=== PATIENT | female | born 1990 | race Caucasian/White ===

== ENCOUNTER 2020-01-27 13:45 | Emergency (ER) | payer MEDICAID, SELFPAY ==
--- NOTE | 2020-01-27 13:48 | XR_ITS ---
WS: [id number] XR chest 1V portable [id number] REASON FOR EXAM: cp FINDINGS: The heart and mediastinal interfaces are normal. The lung strange are well aerated. No pneumonia, pleural effusion, pulmonary edema, are pneumothorax. The hilum and apices are normal. No osseous abnormalities. XR/XR chest 1V portable [id number] IMPRESSION: Negative chest for active pathology.
--- NOTE | 2020-01-27 13:48 | ECG_ITS ---
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 Measurements Intervals [place] Rate: 71 P: 17 [place]: 171 QRS: 56 QRSD: 83 T: 52 QT: 392 QTc: 427 Interpretive Statements Normal sinus rhythm at rate of [address]-T's. Normal [place] interval and QRS duration. No previous studies available for comparison Electronically Signed On 01-27-2020 19:22:06 CDT by Wilian Andrade M.D. [id number]
[2020-01-27 14:06] VITALS: BP 134/77; PULSE 70; RESP 16; TEMP 36.8; O2SAT 96; BMI 30.4
[2020-01-27 14:24] VITALS: BP 134/77; PULSE 73; RESP 19; O2SAT 97
[2020-01-27 14:28] LABS: Basophils # 0.1 10^3/uL (0.0-0.1); Basophils % 0.6 %; Eosinophils # 0.4 10^3/uL (0.0-0.8); Eosinophils % 3.7 %; Hematocrit 43.4 % (37.0-47.0); Hemoglobin 14.5 g/dL (11.5-15.3); Lymphocytes # 2.9 10^3/uL (0.8-4.8); Lymphocytes % 26.7 %; Mean Corpuscular HGB Conc 33.4 g/dL (30.0-36.0); Mean Corpuscular Hemoglobin 31.3 pg (28.0-34.0); Mean Corpuscular Volume 93.7 fL (81-99); Mean Platelet Volume 10.4 fL (7.4-10.4); Monocytes # 0.5 10^3/uL (0.2-0.9); Monocytes % 4.5 %; Neutrophils % 64.2 %; Nucleated Red Blood Cells % 0 %; Platelet Count 283 10^3/cmm (130-400); Red Blood Count 4.63 10^6/uL (4.1-5.3); Red Cell Distribution Width 14.2 % (12.1-15.1); White Blood Count 10.9 10^3/uL (4.0-10.0)
--- NOTE | 2020-01-27 14:37 | ED_ITS ---
HPI - SOB/Dyspnea General: Chief Complaint: Shortness of Breath/Dyspnea Stated Complaint: cp, sob Time Seen by Provider: 01/27/20 14:03 History of Present Illness: HPI Narrative: 29-year-old pleasant female who comes in with complaint of shortness of breath I talked her she is it pain in the left side of her chest, lateral to the breast at the tail the breast and above the breast worse when she takes a deep breath is better when she takes shallow breaths began this morning she was just taking care of her kids doing generalized housework nothing exertional she suddenly began to notice it. She took some [id number] medications with no relief she cannot recall any recent trauma she denies any recent upper respiratory symptoms cough shortness of breath productive cough etc. MD elicited complaint: pain with inspiration Onset (ago): hour(s) Timing: constant Severity: severe Exacerbating factors: inspiration Relieving factors: upright position and other (Shallow breathing) Associated symptoms: Deny abdominal pain, chest pain, fever(s), nausea, orthopnea or vomiting Treatment prior to arrival: none Review of Systems Const: Denies: fever(s), chills, body aches, change in appetite, fatigue or malaise ENMT: Denies: throat pain, ear or mastoid pain, nasal discharge or nasal congestion Card: Denies: chest pain, edema, dyspnea on exertion or orthopnea Resp: Denies: dyspnea, productive cough or non-productive cough GI: Denies: abdominal pain, nausea, vomiting, hematemesis, coffee ground emesis, diarrhea, constipation, bloating, hematochezia or melena : Denies: flank pain, difficulty voiding, dysuria, urinary frequency or urinary urgency Skin/Breast: Denies: rash or pruritus [facility] PFSH: Surgical History (Updated 01/27/20 @ 14:40 by Slava Williamson DO) H/O skin graft Right hand secondary to oil burn while cooking Social History Smoking and tobacco status: current every day smoker Physical Exam Const: COMMON NORMALS: no acute distress GENERAL APPEARANCE: cooperative and comfortable ORIENTATION/CONSCIOUSNESS: Yes awake, Yes oriented to person, Yes oriented to place and Yes oriented to time HENMT: COMMON NORMALS: normocephalic, atraumatic, hearing grossly normal bilaterally, external ears normal, EAC's normal, TM's normal bilaterally, Normal nasal mucous membranes and turbinates present, moist oral mucous membranes and oropharynx normal HEAD & SCALP: normocephalic and atraumatic NOSE: Normal nasal mucous membranes and turbinates present EXTERNAL EAR: Yes external ears normal EXTERNAL AUDITORY CANAL: EAC's normal TYMPANIC MEMBRANE: TM's normal bilaterally Eye: COMMON NORMALS: Equal, round and reactive pupils present, EOMs intact bilaterally, conjunctivae normal and no scleral icterus CONJUNCTIVA: Yes conjunctivae normal PUPIL: Yes Equal, round and reactive pupils present Neck/C-Spine: COMMON NORMALS: full ROM, no lymphadenopathy, supple and no JVD Lymph: LYMPHATIC: no lymphadenopathy noted and no lymphedema noted Resp: COMMON NORMALS: normal respiratory effort, No retractions, No use of accessory muscles and clear to auscultation bilaterally AUSCULTATION: clear to auscultation bilaterally Cardio: COMMON NORMALS: no JVD, regular rate, regular rhythm and No murmurs present (Cardio) RATE: regular rate RHYTHM: regular rhythm GI: COMMON NORMALS: Soft to palpation and No hepatosplenomegaly present AUSCULTATION: Yes normoactive bowel sounds PALPATION: Yes Soft to palpation, No Tenderness to palpation present (GI), No Guarding due to palpation present (GI) and Yes No hepatosplenomegaly present Extremity: COMMON NORMALS: normal to inspection, capillary refill normal, no clubbing, cyanosis or edema, no calf tenderness and no pedal edema Neuro: SENSORIUM/ORIENTATION: Yes oriented to person, Yes oriented to place and Yes oriented to time Skin: COMMON NORMALS: no rashes or lesions noted GENERAL SKIN EXAM: no rashes or lesions noted Course Vital Signs: Vital signs: Vital Signs Temperature 98.3 F 01/27/20 14:06 Pulse Rate 65 01/27/20 15:56 Respiratory Rate 16 01/27/20 15:56 Blood Pressure 119/79 01/27/20 15:56 Pulse Oximetry 97 01/27/20 15:56 MDM - SOB/Dyspnea MDM Narrative: Medical decision making narrative: Viewed findings with the patient. There is symptoms reproducible with deep inspiration treat with pain control and prednisone follow-up as needed return if worsens Lab Data: Labs: Lab Results 01/27/20 01/27/20 01/27/20 Range/Units 14:16 14:16 14:16 WBC 10.9 H (4.0-10.0) 10^3/ uL RBC 4.63 (4.1-5.3) 10^6/u L Hgb 14.5 (11.5-15.3) g/dL Hct 43.4 (37.0-47.0) % MCV 93.7 (81-99) fL MCH 31.3 (28.0-34.0) pg MCHC 33.4 (30.0-36.0) g/dL RDW 14.2 (12.1-15.1) % Plt Count 283 (130-400) 10^3/c mm MPV 10.4 (7.4-10.4) fL Neut % (Auto) 64.2 % Lymph % (Auto) 26.7 % [place] % (Auto) 4.5 % Eos % (Auto) 3.7 % Baso % (Auto) 0.6 % Neut # (Auto) 7.0 (1.8-7.7) 10^3/u L Lymph # (Auto) 2.9 (0.8-4.8) 10^3/u L [place] # (Auto) 0.5 (0.2-0.9) 10^3/u L Eos # (Auto) 0.4 (0.0-0.8) 10^3/u L Baso # (Auto) 0.1 (0.0-0.1) 10^3/u L Nucleated RBC % (a uto) 0 % Nucleated RBCs # 0.0 /100WBC Sodium 137 (136-145) mmol/L Potassium 4.0 (3.5-5.1) mmol/L Chloride 103 (98-107) mmol/L Carbon Dioxide 22 (22-29) mmol/L Anion Gap 16.0 (5-19) BUN 11 (6-20) mg/dL Creatinine 0.7 (0.5-0.9) mg/dL GFR Calculation 97.6 (90-130) mL/min Glucose 145 H (65-115) mg/dL Calculated Osmolal ity 283 L (285-295) mOsm/k g Calcium 9.8 (8.5-10.5) mg/dL Total Bilirubin 0.2 (0.15-1.2) mg/dL AST 15 (0-32) U/L ALT 15 (0-33) U/L Alkaline Phosphata se 67 (35-105) IU/L Troponin T Baselin e 6 (0-10) ng/L NT-Pro-B Natriuret Pep 56 (0-125) pg/mL Total Protein 7.2 (6.6-8.7) g/dL Albumin 4.7 (3.5-5.2) g/dL Globulin 2.5 (1.3-4.6) g/dL Discharge Plan Discharge Patient Disposition: Home, Self-Care Clinical Impression: Chest pain, pleuritic Condition: Stable Prescriptions: New hydrocodone-acetaminophen 5-325 mg tablet 1 tab PO Q6H PRN (Reason: pain) Qty: 10 RF: 0 Medrol ([place]) 4 mg tablets,dose pack See Rx Instructions .ROUTE .COMPLEX Qty: 21 RF: 0 No Action multivitamin Tablet 1 tab PO DAILY RF: 0 ibuprofen 600 mg Tablet 600 mg PO PRN PRN (Reason: Pain) RF: 0 Discharge Orders: Discharge Order (Routine); Ordered 01/27/20 Ordered By: Slava Williamson Referrals: Bertrand Sibley MD [Primary Care Provider] - Discharge Diet: Usual diet Discharge Activity: Increase activity as tolerated Activity Restrictions/Additional Instructions: Follow-up with your primary care doctor as needed Discharge Date/Time: 01/27/20 15:56 Coding Level of Care Code ED Computer Education Professor for Pb Fwd Exam Comprehensive
[2020-01-27 14:53] LABS: Troponin(5th) Baseline 6 ng/L (0-10)
[2020-01-27 15:03] LABS: Alanine Aminotransferase 15 U/L (0-33); Albumin Level 4.7 g/dL (3.5-5.2); Alkaline Phosphatase 67 IU/L (35-105); Aspartate Amino Transferase 15 U/L (0-32); Blood Urea Nitrogen 11 mg/dL (6-20); Calcium 9.8 mg/dL (8.5-10.5); Carbon Dioxide 22 mmol/L (22-29); Chloride 103 mmol/L (98-107); Creatinine Clr Calc Pharmacy 123.9061; Globulin 2.5 g/dL (1.3-4.6); Glomerular Filtration Rate 97.6 mL/min (90-130); Glucose 145 mg/dL (65-115); NT Pro B Type Natriuretic Pept 56 pg/mL (0-125); Osmolality Calculated 283 mOsm/kg (285-295); Sodium 137 mmol/L (136-145); Total Bilirubin 0.2 mg/dL (0.15-1.2); Total Protein 7.2 g/dL (6.6-8.7)
[2020-01-27 15:06] VITALS: BP 119/79; PULSE 58; RESP 20; O2SAT 97
[2020-01-27] MEDS: HYDROcodone-acetaminophen 5-325 mg Tablet 2 TAB PO (15:06)
--- NOTE | 2020-01-27 15:48 | ECG_ITS ---
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 Measurements Intervals [place] Rate: 55 P: 9 ID: [id number] QRS: 44 QRSD: 86 T: 47 QT: 436 QTc: 418 Interpretive Statements Sinus bradycardia with a rate of [address] changes suggestive of diffuse early repolarization No significant ST-T changes. Normal ID and QRS duration. Electronically Signed On 01-27-2020 19:36:54 CDT by Wilian Andrade M.D. [id number]
--- NOTE | 2020-01-27 15:49 | PC.NURSE ---
EKG done at 1544 and shown to ER doctor
[2020-01-27 15:56] VITALS: BP 119/79; PULSE 65; RESP 16; O2SAT 97
== END 2020-01-27 15:56 | disposition home or self-care (01) ==
PROVIDERS: Emergency Medicine; Emergency Provider Family Medicine; PCP Family Medicine
DX: R07.81 Pleurodynia (principal); F17.210 Nicotine dependence, cigarettes, uncomplicated
CPT/HCPCS: 12345; 36415; 71045; 80053; 83880; 84484; 85025; 93005; 99282; 99284

== ENCOUNTER 2020-02-17 07:27 | Emergency (ER) | payer MEDICAID, SELFPAY ==
[2020-02-17 07:44] VITALS: BP 148/98; PULSE 60; RESP 16; TEMP 36.6; O2SAT 99; BMI 29.9
--- NOTE | 2020-02-17 08:02 | XRR_ITS ---
PROCEDURE INFORMATION: Exam: XR Chest, 1 View Exam date and time: 02/17/2020 8:19 AM Age: 29 years old Clinical indication: Cough and dyspnea; Additional info: Dyspnea/cough TECHNIQUE: Imaging protocol: XR of the chest Views: 1 view. COMPARISON: CR XR chest 1V portable [id number] 01/27/2020 2:01 PM FINDINGS: Lungs: Unremarkable. No consolidation. Pleural space: Unremarkable. No pleural effusion. No pneumothorax. Heart/Mediastinum: Unremarkable. No cardiomegaly. Bones/joints: Unremarkable. XR/XR chest 1V portable [id number] IMPRESSION: No acute findings.
--- NOTE | 2020-02-17 08:14 | W.ED.GENADLT ---
HPI - General Adult General: Chief complaint: General Medical Stated complaint: SOB/LUNG PAIN Time Seen by Provider: 02/17/20 07:46 History of Present Illness: HPI narrative: 35-year-old female only seen her 2 to 3 weeks ago at that time she diverted like chest pain and left upper side who prescribed her some steroid she had really good results with that resolved now it is recurring. This morning is worse with a deep breath in the same area as before she is not had a productive cough she not had a fever she had any leg swelling or pain she is not noticed any shortness of breath just pain only when she takes a deep breath. She denies any rapid heart rate or palpitations either. She describes the pain is identical to prior with 1 exception that is not reproduced with palpation across the upper chest or the tail the breast anymore just when she takes a deep breath. Onset (ago): hour(s) Location: chest (Left upper) Radiation: non-radiation Severity: moderate Quality: sharp Pain Consistency: intermittent Relieving factors: none Exacerbating factors: other (Deep breath) Associated symptoms: Reports chest pain; Deny cough, diaphoresis, dyspnea, fevers/chills, malaise, nausea, rash, palpitations, vomiting or weakness Treatments prior to arrival: NSAID (Mild relief) Review of Systems Const: Denies: malaise or diaphoresis ENMT: Denies: throat pain, ear or mastoid pain, nasal discharge or nasal congestion Card: Reports: chest pain; Denies: palpitations Resp: Denies: dyspnea GI: Denies: nausea or vomiting : Denies: flank pain, difficulty voiding, dysuria, urinary frequency or urinary urgency Skin/Breast: Denies: rash or pruritus PFSH ED PFSH: Medical History Current smoker Surgical History H/O skin graft Right hand secondary to oil burn while cooking Family History Other Cancer Dementia Diabetes Hypertension Stroke Denies family history of Chronic kidney disease (CKD) Bleeding disorder Social History Smoking and tobacco status: current every day smoker Second hand smoke exposure: Yes Smoking risk assessment/counseling performed?: Yes Alcohol intake: current Alcohol intake frequency: 0-2 Drinks per Day Desire information about alcohol rehabilitation?: No Counseling given: No Substance/Drug Use: never Desire information about substance/drug rehabilitation?: No Counseling given: No Adopted: No Caregiver/support person: No Lives independently: Yes Household members: significant other and children Housing: House Marital status: Single Number of children: 3 service: No Current occupational status: unemployed and student Pets and animals: Yes Pets & animals: dog(s) History of recent travel: No Current gender identity: Female Female Reproductive History: Date of last menstrual period: 02/09/20 Physical Exam Const: COMMON NORMALS: no acute distress GENERAL APPEARANCE: cooperative and comfortable ORIENTATION/CONSCIOUSNESS: Yes awake, Yes oriented to person, Yes oriented to place and Yes oriented to time HENMT: COMMON NORMALS: normocephalic, atraumatic, hearing grossly normal bilaterally, external ears normal, EAC's normal, TM's normal bilaterally, Normal nasal mucous membranes and turbinates present, moist oral mucous membranes and oropharynx normal HEAD & SCALP: normocephalic and atraumatic NOSE: Normal nasal mucous membranes and turbinates present EXTERNAL EAR: Yes external ears normal EXTERNAL AUDITORY CANAL: EAC's normal TYMPANIC MEMBRANE: TM's normal bilaterally Eye: COMMON NORMALS: Equal, round and reactive pupils present, EOMs intact bilaterally, conjunctivae normal and no scleral icterus CONJUNCTIVA: Yes conjunctivae normal PUPIL: Yes Equal, round and reactive pupils present Neck/C-Spine: COMMON NORMALS: full ROM, no lymphadenopathy, supple and no JVD Lymph: LYMPHATIC: no lymphadenopathy noted and no lymphedema noted Resp: COMMON NORMALS: normal respiratory effort, No retractions, No use of accessory muscles and clear to auscultation bilaterally AUSCULTATION: clear to auscultation bilaterally Cardio: COMMON NORMALS: no JVD, regular rate, regular rhythm and No murmurs present (Cardio) RATE: regular rate RHYTHM: regular rhythm GI: COMMON NORMALS: Soft to palpation and No hepatosplenomegaly present AUSCULTATION: Yes normoactive bowel sounds PALPATION: Yes Soft to palpation, No Tenderness to palpation present (GI), No Guarding due to palpation present (GI) and Yes No hepatosplenomegaly present Extremity: COMMON NORMALS: normal to inspection, capillary refill normal, no clubbing, cyanosis or edema, no calf tenderness and no pedal edema Neuro: SENSORIUM/ORIENTATION: Yes oriented to person, Yes oriented to place and Yes oriented to time Skin: COMMON NORMALS: no rashes or lesions noted GENERAL SKIN EXAM: no rashes or lesions noted Course Vital Signs: Vital signs: Vital Signs Temperature 97.8 F 02/17/20 07:44 Pulse Rate 67 02/17/20 09:41 Respiratory Rate 18 02/17/20 09:41 Blood Pressure 136/96 02/17/20 09:41 Pulse Oximetry 97 02/17/20 09:41 MDM - General Adult MDM Narrative: Medical decision making narrative: Reviewed findings with the patient. Recommend supportive cares pain medications as needed continue to follow-up with primary care or return to the ER if is worsening problems. Lab Data: Labs: Lab Results 02/17/20 02/17/20 Range/Units 08:25 08:25 WBC 8.9 (4.0-10.0) 10^3/ uL RBC 4.63 (4.1-5.3) 10^6/u L Hgb 14.6 (11.5-15.3) g/dL Hct 45.5 (37.0-47.0) % MCV 98.3 (81-99) fL MCH 31.5 (28.0-34.0) pg MCHC 32.1 (30.0-36.0) g/dL RDW 13.8 (12.1-15.1) % Plt Count 278 (130-400) 10^3/c mm MPV 10.3 (7.4-10.4) fL Neut % (Auto) 67.0 % Lymph % (Auto) 24.1 % [place] % (Auto) 5.3 % Eos % (Auto) 2.9 % Baso % (Auto) 0.5 % Neut # (Auto) 6.0 (1.8-7.7) 10^3/u L Lymph # (Auto) 2.1 (0.8-4.8) 10^3/u L [place] # (Auto) 0.5 (0.2-0.9) 10^3/u L Eos # (Auto) 0.3 (0.0-0.8) 10^3/u L Baso # (Auto) 0.0 (0.0-0.1) 10^3/u L Nucleated RBC % (a uto) 0 % Nucleated RBCs # 0.0 /100WBC Sodium 139 (136-145) mmol/L Potassium 4.1 (3.5-5.1) mmol/L Chloride 106 (98-107) mmol/L Carbon Dioxide 22 (22-29) mmol/L Anion Gap 15.1 (5-19) BUN 10 (6-20) mg/dL Creatinine 0.6 (0.5-0.9) mg/dL GFR Calculation 116.6 (90-130) mL/min Glucose 94 (65-115) mg/dL Calculated Osmolal ity 284 L (285-295) mOsm/k g Calcium 9.2 (8.5-10.5) mg/dL Total Bilirubin 0.5 (0.15-1.2) mg/dL AST 13 (0-32) U/L ALT 13 (0-33) U/L Alkaline Phosphata se 69 (35-105) IU/L C-Reactive Protein 7.2 H (0.0-4.9) mg/L Total Protein 7.3 (6.6-8.7) g/dL Albumin 4.4 (3.5-5.2) g/dL Globulin 2.9 (1.3-4.6) g/dL Discharge Plan Discharge Patient Disposition: Home, Self-Care Clinical Impression: Atypical chest pain, Pleuritis Condition: Stable Prescriptions: New hydrocodone-acetaminophen 5-325 mg tablet 1 tab PO Q6H PRN (Reason: pain) Qty: 10 RF: 0 Held ibuprofen 200 mg Tablet 800 mg PO PRN RF: 0 Hold Instructions: Resume on 02/27/20. Hold while taking diclofenac No Action multivitamin Tablet 1 tab PO DAILY RF: 0 Discharge Orders: Discharge Order (Routine); Ordered 02/17/20 Ordered By: Slava Williamson Referrals: Bertrand Sibley MD [Primary Care Provider] - Activity Restrictions/Additional Instructions: Follow-up with your primary care doctors pain recurs. Interventions: ED Discharge Assessment Last Done: 02/17/20 09:41 ED Charges Last Done: 02/17/20 09:41 Discharge Date/Time: 02/17/20 09:43 Coding Level of Care Code ED Strap Folding Machine Operator for Chg Fwd Exam Comprehensive
[2020-02-17] MEDS: ketorolac 30 mg/mL INJ IVP (08:31)
[2020-02-17 08:32] LABS: Basophils % 0.5 %; Eosinophils # 0.3 10^3/uL (0.0-0.8); Eosinophils % 2.9 %; Hematocrit 45.5 % (37.0-47.0); Hemoglobin 14.6 g/dL (11.5-15.3); Lymphocytes # 2.1 10^3/uL (0.8-4.8); Lymphocytes % 24.1 %; Mean Corpuscular HGB Conc 32.1 g/dL (30.0-36.0); Mean Corpuscular Hemoglobin 31.5 pg (28.0-34.0); Mean Corpuscular Volume 98.3 fL (81-99); Mean Platelet Volume 10.3 fL (7.4-10.4); Monocytes # 0.5 10^3/uL (0.2-0.9); Monocytes % 5.3 %; Nucleated Red Blood Cells % 0 %; Platelet Count 278 10^3/cmm (130-400); Red Blood Count 4.63 10^6/uL (4.1-5.3); Red Cell Distribution Width 13.8 % (12.1-15.1); White Blood Count 8.9 10^3/uL (4.0-10.0)
[2020-02-17 08:52] LABS: Alanine Aminotransferase 13 U/L (0-33); Albumin Level 4.4 g/dL (3.5-5.2); Alkaline Phosphatase 69 IU/L (35-105); Anion Gap 15.1 (5-19); Aspartate Amino Transferase 13 U/L (0-32); Blood Urea Nitrogen 10 mg/dL (6-20); C Reactive Protein 7.2 mg/L (0.0-4.9); Calcium 9.2 mg/dL (8.5-10.5); Carbon Dioxide 22 mmol/L (22-29); Chloride 106 mmol/L (98-107); Globulin 2.9 g/dL (1.3-4.6); Glomerular Filtration Rate 116.6 mL/min (90-130); Glucose 94 mg/dL (65-115); Osmolality Calculated 284 mOsm/kg (285-295); Potassium 4.1 mmol/L (3.5-5.1); Sodium 139 mmol/L (136-145); Total Bilirubin 0.5 mg/dL (0.15-1.2); Total Protein 7.3 g/dL (6.6-8.7)
[2020-02-17 09:41] VITALS: BP 136/96; PULSE 67; RESP 18; O2SAT 97
== END 2020-02-17 09:43 | disposition home or self-care (01) ==
PROVIDERS: Emergency Provider Family Medicine; PCP Family Medicine
DX: R07.89 Other chest pain (principal); R09.1 Pleurisy; F17.210 Nicotine dependence, cigarettes, uncomplicated
CPT/HCPCS: 12345; 36415; 71045; 80053; 85025; 86140; 96374; 96375; 99282; 99283; J1885; J2930

== ENCOUNTER 2020-06-13 10:39 | Emergency (ER) | payer MEDICAID, SELFPAY ==
--- NOTE | 2020-06-13 10:52 | XRR_ITS ---
PROCEDURE INFORMATION: Exam: XR Chest, 2 Views Exam date and time: 06/13/2020 10:54 AM Age: 29 years old Clinical indication: Chest pain; Type not specified; Additional info: Cp TECHNIQUE: Imaging protocol: XR of the chest Views: 2 views. COMPARISON: CR XR chest 1V portable [id number] 02/17/2020 8:28 AM FINDINGS: Lungs: Unremarkable. No consolidation. Pleural space: Unremarkable. No pleural effusion. No pneumothorax. Heart/Mediastinum: Unremarkable. No cardiomegaly. Bones/joints: Unremarkable. XR/XR chest 2V* [id number] IMPRESSION: No acute findings.
--- NOTE | 2020-06-13 11:21 | ED_ITS ---
HPI - Chest Pain General: Chief Complaint: General Medical Stated Complaint: pain when breathing on left side of ABD Time Seen by Provider: 06/13/20 11:11 History of Present Illness: HPI narrative: 29-year-old female comes in complaining of chest pain with deep inspiration. Started began 3 days ago she denies any fever she has not had any productive cough no dysuria urgency or frequency. She is not had any significant shortness of breath which is painful when she takes a deep breath patient is on the left lateral chest. Its not reproducible with palpation but is reproducible with deep inspiration. She denies vomiting or diarrhea. MD complaint: chest pain Onset (ago): day(s) (3) Timing of current episode: constant and increasing Prior episodes: Yes Onset: other (With inspiration) Pain location: left chest Pain radiation: none Severity: similar to previous episodes Quality: sharp Relieving factors: nothing Exacerbating factors: inspiration Associated symptoms: Reports dyspnea; Deny abdominal pain, diaphoresis, fever(s), leg edema, nausea, palpitations, sense of impending doom, syncope or vomiting Treatment prior to arrival: none Review of Systems Const: Denies: fever(s) or diaphoresis ENMT: Denies: throat pain, ear or mastoid pain, nasal discharge or nasal congestion Card: Denies: palpitations or syncope Resp: Reports: dyspnea GI: Denies: abdominal pain, nausea or vomiting : Denies: flank pain, difficulty voiding, dysuria, urinary frequency or urinary urgency Skin/Breast: Denies: rash or pruritus PFSH ED PFSH: Medical History Current smoker Surgical History H/O skin graft Right hand secondary to oil burn while cooking Family History Other Cancer Dementia Diabetes Hypertension Stroke Denies family history of Chronic kidney disease (CKD) Bleeding disorder Social History Smoking and tobacco status: current every day smoker Second hand smoke exposure: Yes Smoking risk assessment/counseling performed?: Yes Alcohol intake: current Alcohol intake frequency: 0-2 Drinks per Day Desire information about alcohol rehabilitation?: No Counseling given: No Desire information about substance/drug rehabilitation?: No Counseling given: No Adopted: No Caregiver/support person: No Lives independently: Yes Household members: significant other and children Housing: House Marital status: Single Number of children: 3 service: No Current occupational status: unemployed and student Pets and animals: Yes Pets & animals: dog(s) History of recent travel: No Current gender identity: Female Female Reproductive History: Date of last menstrual period: 02/09/20 Physical Exam Const: COMMON NORMALS: no acute distress GENERAL APPEARANCE: cooperative and comfortable ORIENTATION/CONSCIOUSNESS: Yes awake, Yes oriented to person, Yes oriented to place and Yes oriented to time HENMT: COMMON NORMALS: normocephalic, atraumatic and hearing grossly normal bilaterally HEAD & SCALP: normocephalic and atraumatic Eye: COMMON NORMALS: Equal, round and reactive pupils present, EOMs intact bilaterally, conjunctivae normal and no scleral icterus CONJUNCTIVA: Yes conjunctivae normal PUPIL: Yes Equal, round and reactive pupils present Neck/C-Spine: COMMON NORMALS: full ROM, no lymphadenopathy, supple and no JVD Lymph: LYMPHATIC: no lymphadenopathy noted and no lymphedema noted Resp: COMMON NORMALS: normal respiratory effort, No retractions, No use of accessory muscles and clear to auscultation bilaterally AUSCULTATION: clear to auscultation bilaterally OTHER: Pain reproducible with deep inspiration Cardio: COMMON NORMALS: no JVD, regular rate, regular rhythm and No murmurs p resent (Cardio) RATE: regular rate RHYTHM: regular rhythm GI: COMMON NORMALS: Soft to palpation and No hepatosplenomegaly present AUSCULTATION: Yes normoactive bowel sounds PALPATION: Yes Soft to palpation, No Tenderness to palpation present (GI), No Guarding due to palpation present (GI) and Yes No hepatosplenomegaly present Extremity: COMMON NORMALS: normal to inspection, capillary refill normal, no clubbing, cyanosis or edema, no calf tenderness and no pedal edema Neuro: SENSORIUM/ORIENTATION: Yes oriented to person, Yes oriented to place and Yes oriented to time Skin: COMMON NORMALS: no rashes or lesions noted GENERAL SKIN EXAM: no rashes or lesions noted Course Vital Signs: Vital signs: Vital Signs Temperature 98.1 F 06/13/20 11:37 Pulse Rate 75 06/13/20 15:04 Respiratory Rate 16 06/13/20 15:04 Blood Pressure 139/93 06/13/20 15:04 Pulse Oximetry 98 06/13/20 15:04 MDM - Chest Pain MDM Narrative: Medical decision making narrative: CT read as having pulmonary emboli. Will start patient on Eliquis emboli described as very small burden on the CT. Have her follow-up with her primary care doctor in the next few days. Return if has further problems. Lab Data: Labs: Lab Results 06/13/20 06/13/20 06/13/20 Range/Units 11:56 11:56 12:57 WBC 12.8 H (4.0-10.0) 10^3/ uL RBC 4.09 L (4.1-5.3) 10^6/u L Hgb 13.2 (11.5-15.3) g/dL Hct 40.2 (37.0-47.0) % MCV 98.3 (81-99) fL MCH 32.3 (28.0-34.0) pg MCHC 32.8 (30.0-36.0) g/dL RDW 13.2 (12.1-15.1) % Plt Count 301 (130-400) 10^3/c mm MPV 10.2 (7.4-10.4) fL Neut % (Auto) 67.7 % Lymph % (Auto) 19.9 % [place] % (Auto) 5.3 % Eos % (Auto) 6.4 % Baso % (Auto) 0.5 % Neut # (Auto) 8.63 H (1.8-7.7) 10^3/u L Lymph # (Auto) 2.5 (0.8-4.8) 10^3/u L [place] # (Auto) 0.7 (0.2-0.9) 10^3/u L Eos # (Auto) 0.8 (0.0-0.8) 10^3/u L Baso # (Auto) 0.1 (0.0-0.1) 10^3/u L Nucleated RBC % (a uto) 0 % Nucleated RBCs # 0.0 /100WBC Sodium 139 (136-145) mmol/L Potassium 4.1 (3.5-5.1) mmol/L Chloride 107 (98-107) mmol/L Carbon Dioxide 24 (22-29) mmol/L Anion Gap 12.1 (5-19) BUN 8 (6-20) mg/dL Creatinine 0.7 (0.5-0.9) mg/dL GFR Calculation 97.6 (90-130) mL/min Glucose 102 (65-115) mg/dL Calculated Osmolal ity 287 (285-295) mOsm/k g Calcium 9.0 (8.5-10.5) mg/dL Total Bilirubin 0.2 (0.15-1.2) mg/dL AST 15 (0-32) U/L ALT 17 (0-33) U/L Alkaline Phosphata se 69 (35-105) IU/L Total Protein 7.0 (6.6-8.7) g/dL Albumin 4.3 (3.5-5.2) g/dL Globulin 2.7 (1.3-4.6) g/dL Lipase 18 (13-60) U/L Urine Color Straw (Yellow) Urine Appearance Clear (CLEAR) Urine pH 5 (5-7) Ur Specific Gravit y 1.010 (1.005-1.030) Urine Protein Neg (Negative) Urine Glucose (UA) Norm (Normal) Urine Ketones Negative (Negative) Urine Blood Neg (Negative) Urine Nitrate Negative (Negative) Urine Bilirubin Neg (Negative) Urine Urobilinogen Norm (Negative) mg/dL Ur Leukocyte [place] ase Negative (Negative) Discharge Plan Discharge Patient Disposition: Home Clinical Impression: Pulmonary emboli Condition: Stable Prescriptions: New Eliquis DVT-PE Treat 30D Start 5 mg (74 tabs) tablets,dose pack See Rx Instructions .ROUTE .COMPLEX Qty: 74 RF: 0 No Action amoxicillin 500 mg capsule 1,000 mg PO BID 7 Days Qty: 28 RF: 0 ibuprofen 200 mg Tablet 800 mg PO PRN RF: 0 Hold Instructions: Resume on 02/27/20. Hold while taking diclofenac acetaminophen [Tylenol] 325 mg Tablet 325 - 650 mg PO DAILY RF: 0 multivitamin Tablet 1 tab PO DAILY RF: 0 Discharge Orders: Discharge Order (Routine); Ordered 06/13/20 Ordered By: Slava Williamson Referrals: Bertrand Sibley MD [Primary Care Provider] - Discharge Diet: Usual diet Discharge Activity: Limit activity as instructed Activity Restrictions/Additional Instructions: Eliquis as per package instructions 10 mg twice daily for a week then decrease to 5 mg twice daily follow-up with your primary care doctor within the next 2 weeks. Return if you have further problems. 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
[2020-06-13 11:31] VITALS: BMI 33.3
[2020-06-13 11:37] VITALS: BP 131/79; PULSE 74; RESP 18; TEMP 36.7; O2SAT 98
[2020-06-13 12:05] LABS: Basophils # 0.1 10^3/uL (0.0-0.1); Basophils % 0.5 %; Eosinophils # 0.8 10^3/uL (0.0-0.8); Eosinophils % 6.4 %; Hematocrit 40.2 % (37.0-47.0); Hemoglobin 13.2 g/dL (11.5-15.3); Lymphocytes # 2.5 10^3/uL (0.8-4.8); Lymphocytes % 19.9 %; Mean Corpuscular HGB Conc 32.8 g/dL (30.0-36.0); Mean Corpuscular Hemoglobin 32.3 pg (28.0-34.0); Mean Corpuscular Volume 98.3 fL (81-99); Mean Platelet Volume 10.2 fL (7.4-10.4); Monocytes # 0.7 10^3/uL (0.2-0.9); Monocytes % 5.3 %; Neutrophils # 8.63 10^3/uL (1.8-7.7); Neutrophils % 67.7 %; Nucleated Red Blood Cells % 0 %; Platelet Count 301 10^3/cmm (130-400); Red Blood Count 4.09 10^6/uL (4.1-5.3); Red Cell Distribution Width 13.2 % (12.1-15.1); White Blood Count 12.8 10^3/uL (4.0-10.0)
--- NOTE | 2020-06-13 12:14 | CT_ITS ---
WS: [id number] CTA OF THE CHEST WITH PULMONARY EMBOLISM PROTOCOL TECHNIQUE: High-resolution contrast enhanced CTA of the chest with coronal and sagittal reformatted i mages with pulmonary embolism protocol. MIP images are also reviewed. CLINICAL INFORMATION: dyspnea/chest pain COMPARISON: None. DLP: 583.[address] scans at [facility] use at least one of these dose optimization techniques: automat ed exposure control; mA and/or kV adjustment per patient size (includes targeted exams where dose is matched to clinical indication); or iterative reconstruction. FINDINGS: Proximal main pulmonary arteries are normal. Linear filling defect in the left upper lobe segmental p ulmonary artery consistent with pulmonary embolus. No other filling defects. Normal thyroid gland. No mediastinal or hilar lymphadenopathy. No suspicious pulmonary parenchymal ab normalities. No acute pulmonary infiltrates. No focal pneumonia or pleural fluid. No axillary lymphad enopathy. Adrenal glands are normal. CT/CT angio chest PE protcl [id number] IMPRESSION: 1. Small filling defect in the left upper lobe segmental pulmonary artery cons istent with pulmonary embolus. No other visualized filling defects. 2. Proximal main pulmonary arteries are patent. 3. No mediastinal or hilar lymphadenopathy. 4. No acute pulmonary infiltrates. No suspicious pulmonary parenchymal or norm alities. 5. No mediastinal or hilar lymphadenopathy. Notified Slava Williamson DO at 06/13/2020 2:46 PM.
[2020-06-13 12:22] LABS: Alanine Aminotransferase 17 U/L (0-33); Albumin Level 4.3 g/dL (3.5-5.2); Alkaline Phosphatase 69 IU/L (35-105); Anion Gap 12.1 (5-19); Aspartate Amino Transferase 15 U/L (0-32); Blood Urea Nitrogen 8 mg/dL (6-20); Carbon Dioxide 24 mmol/L (22-29); Chloride 107 mmol/L (98-107); Globulin 2.7 g/dL (1.3-4.6); Glomerular Filtration Rate 97.6 mL/min (90-130); Glucose 102 mg/dL (65-115); Lipase 18 U/L (13-60); Osmolality Calculated 287 mOsm/kg (285-295); Potassium 4.1 mmol/L (3.5-5.1); Sodium 139 mmol/L (136-145); Total Bilirubin 0.2 mg/dL (0.15-1.2)
[2020-06-13 13:12] VITALS: RESP 15
[2020-06-13] MEDS: morphine 4 mg/mL SDV 1 mL IVP (13:12)
[2020-06-13 13:17] LABS: Add Urine Microscopic? NO
[2020-06-13 13:30] LABS: Bilirubin Urine Neg (Negative); Blood Urine Neg (Negative); Glucose Urine UA Norm (Normal); Ketones Urine Negative (Negative); Leukocyte Esterase Urine Negative (Negative); Nitrate Urine Negative (Negative); Protein Urine Neg (Negative); Urine Appearance Clear (CLEAR); Urine Color Straw (Yellow); Urobilinogen Urine Norm (Negative); pH Urine 5 (5-7)
--- NOTE | 2020-06-13 13:54 | PC.NURSE ---
Read and agree with assessment.
[2020-06-13] MEDS: iohexol 350 mg/mL 100 mL Btl IV (14:10)
[2020-06-13 15:04] VITALS: BP 139/93; PULSE 75; RESP 16; O2SAT 98
== END 2020-06-13 15:05 | disposition home or self-care (01) ==
PROVIDERS: Emergency Provider Family Medicine; PCP Family Medicine
DX: I26.99 Other pulmonary embolism without acute cor pulmonale (principal); F17.210 Nicotine dependence, cigarettes, uncomplicated
CPT/HCPCS: 12345; 71046; 71275; 80053; 81003; 83690; 85025; 96374; 99282; 99283; J2270; Q9967

== ENCOUNTER 2020-06-13 19:04 | Emergency (ER) | payer MEDICAID, SELFPAY ==
[2020-06-13 19:13] VITALS: BP 141/87; PULSE 82; RESP 20; TEMP 36.8; O2SAT 97; BMI 33.3
--- NOTE | 2020-06-13 19:13 | XR_ITS ---
WS: [id number] Portable AP upright chest, 06/13/2020, 1927 hours Clinical Data: sob Comparison: PA and lateral chest, 06/13/2020, 1110 hours Findings: No nodules, masses or effusions are seen. The heart is normal. The pulmonary vascularity is not increased. No pneumonia or pneumothorax is seen. XR/XR chest 1V portable [id number] Impression: Negative chest.
--- NOTE | 2020-06-13 19:13 | ECG_ITS ---
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 Measurements Intervals [place] Rate: 66 P: 15 [place]: 163 QRS: 42 QRSD: 87 T: 40 QT: 396 QTc: 416 Interpretive Statements SINUS RHYTHM Compared to ECG 01/27/2020 15:44:28 Sinus bradycardia no longer present ST (T wave) deviation no longer present Early repolarization no longer present Electronically Signed On 06-14-2020 20:12:03 [employer]PERVISOR [employer] by Wilian Andrade M.D. [id number]
--- NOTE | 2020-06-13 20:42 | CTR_ITS ---
PROCEDURE INFORMATION: Exam: CT Angiography Chest With Contrast Exam date and time: 06/13/2020 8:53 PM Age: 29 years old Clinical indication: Chest pain; Additional info: Worsening chest pain TECHNIQUE: Imaging protocol: Computed tomographic angiography of the chest with intravenous contrast. 3D rendering (Not supervised by radiologist): MIP and/or 3D reconstructed images were created by the technologist. Radiation optimization: All CT scans at this facility use at least one of these dose optimization techniques: automated exposure control; mA and/or kV adjustment per patient size (includes targeted exams where dose is matched to clinical indication); or iterative reconstruction. Contrast material: OMNI 350; Contrast volume: 95 ml; Contrast route: INTRAVENOUS (IV); COMPARISON: CT angio chest PE protcl [id number] 06/13/2020 2:03 PM RADIATION DOSE METRICS: Total DLP (mGy-cm): 605.27 FINDINGS: Pulmonary arteries: Normal. No pulmonary emboli. Aorta: Unremarkable. No aortic aneurysm. No aortic dissection. Lungs: Mild dependent atelectasis. The lungs are otherwise clear. Pleural space: Unremarkable. No pneumothorax. No pleural effusion. Heart: Unremarkable. No cardiomegaly. No pericardial effusion. Lymph nodes: Unremarkable. No enlarged lymph nodes. Bones/joints: Unremarkable. No acute fracture. Soft tissues: Unremarkable. CT/CT angio chest PE protcl [id number] IMPRESSION: 1. No evidence for pulmonary embolus. Radiation Dose CTDIVOL = (mGy): DLP = 605.27 (mGy-cm)
[2020-06-13 20:50] VITALS: BP 128/92; PULSE 74; RESP 23; O2SAT 98
[2020-06-13 20:57] LABS: Basophils # 0.1 10^3/uL (0.0-0.1); Basophils % 0.5 %; Eosinophils # 1.5 10^3/uL (0.0-0.8); Eosinophils % 10.1 %; Hematocrit 41.1 % (37.0-47.0); Hemoglobin 13.7 g/dL (11.5-15.3); Lymphocytes # 3.4 10^3/uL (0.8-4.8); Mean Corpuscular HGB Conc 33.3 g/dL (30.0-36.0); Mean Corpuscular Hemoglobin 32.2 pg (28.0-34.0); Mean Corpuscular Volume 96.5 fL (81-99); Mean Platelet Volume 10.3 fL (7.4-10.4); Monocytes # 0.8 10^3/uL (0.2-0.9); Monocytes % 5.4 %; Neutrophils # 9.05 10^3/uL (1.8-7.7); Neutrophils % 60.7 %; Nucleated Red Blood Cells % 0 %; Platelet Count 313 10^3/cmm (130-400); Red Blood Count 4.26 10^6/uL (4.1-5.3); Red Cell Distribution Width 13.2 % (12.1-15.1); White Blood Count 14.9 10^3/uL (4.0-10.0)
[2020-06-13] MEDS: sodium chloride 0.9% 1,000 ML 999 ML IV ×2 (21:04→21:20)
--- NOTE | 2020-06-13 21:13 | ECG_ITS ---
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 Measurements Intervals [place] Rate: 73 P: 7 [place]: 179 QRS: 42 QRSD: 89 T: 40 QT: 416 QTc: 460 Interpretive Statements SINUS RHYTHM Compared to ECG 06/13/2020 20:48:11 No significant changes Electronically Signed On 06-14-2020 20:21:19 WEED CONTROLLER by Wilian Andrade M.D. [id number]
--- NOTE | 2020-06-13 21:14 | ED_ITS ---
HPI - Chest Pain General: Chief Complaint: Chest Pain Stated Complaint: trouble breathing/ pulmonary embolism Time Seen by Provider: 06/13/20 20:31 Source: patient Mode of arrival: ambulatory Limitations: no limitations History of Present Illness: HPI narrative: Mary is a 29-year-old female who comes in complaining of continued chest pain and shortness of breath. Patient states she is had the pain in her left side of her chest describes a sharp pain when she takes a deep breath. States the pain is been going on all day and got a little worse tonight. She was diagnosed with a pulmonary embolism by Dr. Williamson earlier in the day but states that she could not fill her Eliquis secondary to insurance reasons. Because of continued pain and not being able to fill this she returned here for evaluation. Patient denies any leg pain or swelling. She has any syncope. She denies any other complaints. Associated symptoms: Reports dyspnea; Deny abdominal pain, diaphoresis, fever(s), nausea, palpitations, syncope or vomiting Review of Systems Const: Denies: fever(s), chills, body aches, fatigue, malaise or diaphoresis Eyes: Denies: change in vision, blurry vision, photophobia, eye discomfort, eye discharge, eye redness or yellow eyes ENMT: Denies: throat pain, odynophagia, hoarseness, swelling of lips/tongue, ear or mastoid pain, ear discharge, change in hearing or nasal discharge Card: Reports: chest pain; Denies: palpitations, irregular heart rhythm, edema, lightheadedness, syncope, pre-syncope, dyspnea on exertion or orthopnea Resp: Reports: dyspnea; Denies: productive cough, non-productive cough, wheezing, hemoptysis or chest congestion GI: Denies: abdominal pain, nausea, vomiting, hematemesis, coffee ground emesis, heartburn, diarrhea, constipation, GI cramping, hematochezia or melena : Denies: flank pain, dysuria, urinary frequency, urinary urgency or hematuria Musc: Denies: neck pain, back pain, extremity pain, extremity swelling, joint pain, joint swelling, joint redness, joint warmth or joint stiffness Skin/Breast: Denies: rash, pruritus, erythema, skin pain or skin tenderness Neuro: Denies: headache(s), numbness in extremities, weakness in extremities, sensory changes, lack of coordination, difficulty walking, dizziness, vertigo, confusion, Slurred speech present or seizure-like activity Noah/Lymph: Denies: easy bruising, easy bleeding, petechiae, purpura or enlarged lymph nodes All/Imm: Denies: urticaria, throat swelling, tongue swelling, facial swelling or acute wheezing PFSH ED PFSH: Medical History Current smoker Surgical History H/O skin graft Right hand secondary to oil burn while cooking Family History Other Cancer Dementia Diabetes Hypertension Stroke Denies family history of Chronic kidney disease (CKD) Bleeding disorder Social History Smoking and tobacco status: current every day smoker Second hand smoke exposure: Yes Smoking risk assessment/counseling performed?: Yes Alcohol intake: current Alcohol intake frequency: 0-2 Drinks per Day Desire information about alcohol rehabilitation?: No Counseling given: No Desire information about substance/drug rehabilitation?: No Counseling given: No Adopted: No Caregiver/support person: No Lives independently: Yes Household members: significant other and children Housing: House Marital status: Single Number of children: 3 service: No Current occupational status: unemployed and student Pets and animals: Yes Pets & animals: dog(s) History of recent travel: No Current gender identity: Female Female Reproductive History: Date of last menstrual period: 02/09/20 Physical Exam Const: COMMON NORMALS: no acute distress, patient oriented x3, no limitations and alert GENERAL APPEARANCE: cooperative HENMT: COMMON NORMALS: normocephalic, atraumatic, external ears normal, EAC's normal and Normal external nose present HEAD & SCALP: normal to inspection, normocephalic and atraumatic FACE & SINUS: normal facial exam and face symmetric NOSE: Normal external nose present and Normal nares present EXTERNAL EAR: Yes external ears normal EXTERNAL AUDITORY CANAL: EAC's normal MOUTH: Normal oral and palatal mucosa present, lip normal and tongue normal Eye: COMMON NORMALS: Equal, round and reactive pupils present and conjunctivae normal GENERAL EYE: appearance normal, both eyes and all related structures ALIGNMENT: Yes alignment normal PERIORBITAL: periorbital findings normal EYELID: eyelids normal CONJUNCTIVA: Yes conjunctivae normal SCLERA: sclerae normal PUPIL: Yes Equal, round and reactive pupils present Neck/C-Spine: COMMON NORMALS: full ROM, no lymphadenopathy, supple, no meningeal signs and no JVD GENERAL: Yes normal visual inspection and Yes trachea midline Chest: COMMONS NORMALS: normal inspection of the chest and normal palpation of entire chest wall Resp: COMMON NORMALS: normal respiratory effort, No retractions, No use of accessory muscles and clear to auscultation bilaterally EFFORT & INSPECTION: Yes able to speak in complete sentences and Yes symmetric chest movement AUSCULTATION: clear to auscultation bilaterally, no crackles, no rales, no rhonc hi and no wheezes Cardio: COMMON NORMALS: no JVD, regular rate, regular rhythm, S1 normal heart sound present and S2 normal heart sound present RATE: regular rate RHYTHM: regular rhythm HEART SOUNDS: S1 normal heart sound present, S2 normal heart sound present, no click, no gallops, no murmurs and no rubs GI: COMMON NORMALS: Soft to palpation and No hepatosplenomegaly present PALPATION: Yes Soft to palpation, No Tenderness to palpation present (GI), No Guarding due to palpation present (GI), No Rigid due to palpation, Yes No hepatosplenomegaly present, No Hernia present, No Palpable mass present and No Pulsatile mass present : COMMON NORMALS: Yes no CVA tenderness BLADDER/KIDNEY EXAM: Yes no CVA tenderness EXTERNAL FEMALE EXAM: No Hernia present Back/Pelvis: COMMON NORMALS: no CVA tenderness, thoracic and lumbar spine normal to inspection, no thoracic nor lumbar tenderness and thoraco-lumbar ROM normal Extremity: COMMON NORMALS: normal to inspection, full ROM, capillary refill normal, no joint enlargement, no clubbing, cyanosis or edema and no calf tenderness Neuro: COMMON NORMALS: patient oriented x3, CN's II-XII intact bilaterally, moves all extremities, no focal motor deficits and no sensory deficits noted SENSORIUM/ORIENTATION: Yes alert MENINGEAL SIGNS: Yes no meningeal signs SPEECH: speech normal Psych: COMMON NORMALS: mental status grossly normal, Normal thought process present, cooperative, normal affect, speech normal and activity/motor behavior normal SPEECH: Yes normal speech THOUGHT PROCESS: Normal thought process present Skin: COMMON NORMALS: no rashes or lesions noted, turgor normal, no jaundice, no petechiae and no mottling GENERAL SKIN EXAM: no rashes or lesions noted and turgor normal Course Vital Signs: Vital signs: Vital Signs Temperature 98.2 F 06/13/20 19:13 Pulse Rate 70 06/14/20 00:53 Respiratory Rate 22 H 06/14/20 00:53 Blood Pressure 112/82 06/14/20 00:53 Pulse Oximetry 99 06/14/20 00:53 MDM - Chest Pain MDM Narrative: Medical decision making narrative: Mary is a nice 29-year-old female who comes in complaining of recurrent chest pain to her chest. I discussed the CT findings with the radiologist who states that he did not see an evidence of PE on the previous study and fabian's study which is better shows no PE. Patient has a negative D-dimer and a negative ultrasound. I believe her chest pain is likely caused by pleurisy. Patient declines any further evaluation care would like to go home. There is evidence of pneumonia to treat with antibiotics. She will take Tylenol Motrin at home [id number] as needed. Patient understands to keep yourself hydrated and if any problems she will return here to the ER. Lab Data: Labs: Lab Results 06/13/20 06/13/20 06/13/20 Range/Units 20:45 20:45 20:45 WBC 14.9 H (4.0-10.0) 10^3/ uL RBC 4.26 (4.1-5.3) 10^6/u L Hgb 13.7 (11.5-15.3) g/dL Hct 41.1 (37.0-47.0) % MCV 96.5 (81-99) fL MCH 32.2 (28.0-34.0) pg MCHC 33.3 (30.0-36.0) g/dL RDW 13.2 (12.1-15.1) % Plt Count 313 (130-400) 10^3/c mm MPV 10.3 (7.4-10.4) fL Neut % (Auto) 60.7 % Lymph % (Auto) 23.0 % [place] % (Auto) 5.4 % Eos % (Auto) 10.1 % Baso % (Auto) 0.5 % Neut # (Auto) 9.05 H (1.8-7.7) 10^3/u L Lymph # (Auto) 3.4 (0.8-4.8) 10^3/u L [place] # (Auto) 0.8 (0.2-0.9) 10^3/u L Eos # (Auto) 1.5 H (0.0-0.8) 10^3/u L Baso # (Auto) 0.1 (0.0-0.1) 10^3/u L Nucleated RBC % (a uto) 0 % Nucleated RBCs # 0.0 /100WBC PT 13.60 (12.1-14.9) SECO NDS INR 1.01 (0.8-1.2) D-Dimer (0-0.59) ug/mIFE U Sodium 139 (136-145) mmol/L Potassium 4.1 (3.5-5.1) mmol/L Chloride 104 (98-107) mmol/L Carbon Dioxide 25 (22-29) mmol/L Anion Gap 14.1 (5-19) BUN 7 (6-20) mg/dL Creatinine 0.6 (0.5-0.9) mg/dL GFR Calculation 116.6 (90-130) mL/min Glucose 90 (65-115) mg/dL Calculated Osmolal ity 286 (285-295) mOsm/k g Calcium 9.3 (8.5-10.5) mg/dL Total Bilirubin 0.2 (0.15-1.2) mg/dL AST 17 (0-32) U/L ALT 17 (0-33) U/L Alkaline Phosphata se 75 (35-105) IU/L Troponin T Baselin e (0-10) ng/L Troponin T 120 Min [place] (0-10) ng/L Delta Troponin T (0-10) ABS# NT-Pro-B Natriuret Pep 29 (0-125) pg/mL Total Protein 7.2 (6.6-8.7) g/dL Albumin 4.6 (3.5-5.2) g/dL Globulin 2.6 (1.3-4.6) g/dL HCG, Qual (Negative) 06/13/20 06/13/20 06/13/20 Range/Units 20:45 20:45 20:45 WBC (4.0-10.0) 10^3/ uL RBC (4.1-5.3) 10^6/u L Hgb (11.5-15.3) g/dL Hct (37.0-47.0) % MCV (81-99) fL MCH (28.0-34.0) pg MCHC (30.0-36.0) g/dL RDW (12.1-15.1) % Plt Count (130-400) 10^3/c mm MPV (7.4-10.4) fL Neut % (Auto) % Lymph % (Auto) % [place] % (Auto) % Eos % (Auto) % Baso % (Auto) % Neut # (Auto) (1.8-7.7) 10^3/u L Lymph # (Auto) (0.8-4.8) 10^3/u L [place] # (Auto) (0.2-0.9) 10^3/u L Eos # (Auto) (0.0-0.8) 10^3/u L Baso # (Auto) (0.0-0.1) 10^3/u L Nucleated RBC % (a uto) % Nucleated RBCs # /100WBC PT (12.1-14.9) SECO NDS INR (0.8-1.2) D-Dimer <= 0.27 (0-0.59) ug/mIFE U Sodium (136-145) mmol/L Potassium (3.5-5.1) mmol/L Chloride (98-107) mmol/L Carbon Dioxide (22-29) mmol/L Anion Gap (5-19) BUN (6-20) mg/dL Creatinine (0.5-0.9) mg/dL GFR Calculation (90-130) mL/min Glucose (65-115) mg/dL Calculated Osmolal ity (285-295) mOsm/k g Calcium (8.5-10.5) mg/dL Total Bilirubin (0.15-1.2) mg/dL AST (0-32) U/L ALT (0-33) U/L Alkaline Phosphata se (35-105) IU/L Troponin T Baselin e 6 (0-10) ng/L Troponin T 120 Min [place] (0-10) ng/L Delta Troponin T (0-10) ABS# NT-Pro-B Natriuret Pep (0-125) pg/mL Total Protein (6.6-8.7) g/dL Albumin (3.5-5.2) g/dL Globulin (1.3-4.6) g/dL HCG, Qual Negative (Negative) 06/13/20 Range/Units 22:35 WBC (4.0-10.0) 10^3/ uL RBC (4.1-5.3) 10^6/u L Hgb (11.5-15.3) g/dL Hct (37.0-47.0) % MCV (81-99) fL MCH (28.0-34.0) pg MCHC (30.0-36.0) g/dL RDW (12.1-15.1) % Plt Count (130-400) 10^3/c mm MPV (7.4-10.4) fL Neut % (Auto) % Lymph % (Auto) % [place] % (Auto) % Eos % (Auto) % Baso % (Auto) % Neut # (Auto) (1.8-7.7) 10^3/u L Lymph # (Auto) (0.8-4.8) 10^3/u L [place] # (Auto) (0.2-0.9) 10^3/u L Eos # (Auto) (0.0-0.8) 10^3/u L Baso # (Auto) (0.0-0.1) 10^3/u L Nucleated RBC % (a uto) % Nucleated RBCs # /100WBC PT (12.1-14.9) SECO NDS INR (0.8-1.2) D-Dimer (0-0.59) ug/mIFE U Sodium (136-145) mmol/L Potassium (3.5-5.1) mmol/L Chloride (98-107) mmol/L Carbon Dioxide (22-29) mmol/L Anion Gap (5-19) BUN (6-20) mg/dL Creatinine (0.5-0.9) mg/dL GFR Calculation (90-130) mL/min Glucose (65-115) mg/dL Calculated Osmolal ity (285-295) mOsm/k g Calcium (8.5-10.5) mg/dL Total Bilirubin (0.15-1.2) mg/dL AST (0-32) U/L ALT (0-33) U/L Alkaline Phosphata se (35-105) IU/L Troponin T Baselin e (0-10) ng/L Troponin T 120 Min [place] 6.00 (0-10) ng/L Delta Troponin T 0 (0-10) ABS# NT-Pro-B Natriuret Pep (0-125) pg/mL Total Protein (6.6-8.7) g/dL Albumin (3.5-5.2) g/dL Globulin (1.3-4.6) g/dL HCG, Qual (Negative) Imaging Data^: CT Chest: Radiologist's impression: [place] [address] CT Scan Report Signed with Juanito Patient: Mary Ackerman Unit #: [id number] : 1990 Age/Sex: 29 / F ADM Date: 06/13/20 Loc: ER Room/Bed: Attending Dr: Ordering Provider/Ordering MD: Erna Norris DO Date of Service: 06/13/20 Procedure(s): CT angio chest PE protcl [id number] Accession Number(s): [id number] Report Number: [id number]/CT angio chest PE protcl [id number] This case was compared to the CT angio chest 06/13/2020 at 2:03 p.m.. No filling defect is identified within a left upper lobe segmental pulmonary artery branch or other arteries. The previously identified filling defect is not identified on this study. These findings were discussed with Dr Norris by Dr. Gee at 11:55 p.m. central time. Radiation Dose CTDIVOL = (mGy): DLP = 605.27 (mGy-cm) Addendum Dictated By: Tien Gee Addendum Signed By: Tien Gee Signed Date/Time: 06/13/20 2 357 Addendum Cosigned By: PROCEDURE INFORMATION: Exam: CT Angiography Chest With Contrast Exam date and time: 06/13/2020 8:53 PM Age: 29 years old Clinical indication: Chest pain; Additional info: Worsening chest pain TECHNIQUE: Imaging protocol: Computed tomographic angiography of the chest with intravenous contrast. 3D rendering (Not supervised by radiologist): MIP and/or 3D reconstructed images were created by the technologist. Radiation optimization: All CT scans at this facility use at least one of these dose optimization techniques: automated exposure control; mA and/or kV adjustment per patient size (includes targeted exams where dose is matched to clinical indication); or iterative reconstruction. Contrast material: OMNI 350; Contrast volume: 95 ml; Contrast route: INTRAVENOUS (IV); COMPARISON: CT angio chest PE protcl [id number] 06/13/2020 2:03 PM RADIATION DOSE METRICS: Total DLP (mGy-cm): 605.27 FINDINGS: Pulmonary arteries: Normal. No pulmonary emboli. Aorta: Unremarkable. No aortic aneurysm. No aortic dissection. Lungs: Mild dependent atelectasis. The lungs are otherwise clear. Pleural space: Unremarkable. No pneumothorax. No pleural effusion. Heart: Unremarkable. No cardiomegaly. No pericardial effusion. Lymph nodes: Unremarkable. No enlarged lymph nodes. Bones/joints: Unremarkable. No acute fracture. Soft tissues: Unremarkable. CT/CT angio chest PE protcl [id number] IMPRESSION: 1. No evidence for pulmonary embolus. Radiation Dose CTDIVOL = (mGy): DLP = 605.27 (mGy-cm) Dictated By: Tien Gee Signed By: Tien Gee Signed Date/Time: 06/13/202319 DD/ Ultrasound venous duplex bilateral lower extremities: My impression: Tech interpretation -no evidence of DVT. EKG Data^: EKG 1: Attestation: I personally reviewed and interpreted this EKG as follows: EKG interpretation date: 06/13/20 EKG interpretation time: 20:48 Interpretation: Normal sinus rhythm at 66 beats a minute, no blocks, normal intervals, no acute ST-T wave changes. EKG 2: Attestation: I personally reviewed and interpreted this EKG as follows: EKG interpretation date: 06/13/20 EKG interpretation time: 23:05 Interpretation: Normal sinus rhythm at 73 beats a minute, normal axis, no blocks, normal intervals, no acute ST-T wave changes. Discharge Plan Discharge Patient Disposition: Home Clinical Impression: Pleurisy Condition: Stable Prescriptions: No Action amoxicillin 500 mg capsule 1,000 mg PO BID 7 Days Qty: 28 RF: 0 ibuprofen 200 mg Tablet 800 mg PO PRN RF: 0 Hold Instructions: Resume on 02/27/20. Hold while taking diclofenac acetaminophen [Tylenol] 325 mg Tablet 325 - 650 mg PO DAILY RF: 0 Eliquis DVT-PE Treat 30D Start 5 mg (74 tabs) tablets,dose pack See Rx Instructions .ROUTE .COMPLEX Qty: 74 RF: 0 multivitamin Tablet 1 tab PO DAILY RF: 0 Discharge Orders: Discharge Order (Routine); Ordered 06/14/20 Ordered By: Erna Norris Referrals: Bertrand Sibley MD [Primary Care Provider] - 1-3 days Discharge Diet: Usual diet Discharge Activity: Resume usual activity Patient Instructions: Pleurisy (ED) Activity Restrictions/Additional Instructions: Please return to the ER immediately for any of the signs or symptoms listed on your discharge instruction sheets, worsening/changing of your symptoms, you are not getting better as quickly as expected, or for ANY other cause or concerns. DO NOT TAKE THE ELIQUIS PERSCRIBED TO YOU EARLIER TODAY. You will not need this medication now or in the future. Be certain to take Tylenol Motrin for your chest discomfort. Return to the ER for any worsening of your symptoms or for any other cause for concern. 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
[2020-06-13 21:21] VITALS: BP 138/95; PULSE 76; RESP 20; O2SAT 99
[2020-06-13 21:26] LABS: INR 1.01 (0.8-1.2)
[2020-06-13 21:28] LABS: Troponin(5th) Baseline 6 ng/L (0-10)
[2020-06-13 21:37] LABS: Alanine Aminotransferase 17 U/L (0-33); Albumin Level 4.6 g/dL (3.5-5.2); Alkaline Phosphatase 75 IU/L (35-105); Anion Gap 14.1 (5-19); Aspartate Amino Transferase 17 U/L (0-32); Blood Urea Nitrogen 7 mg/dL (6-20); Calcium 9.3 mg/dL (8.5-10.5); Carbon Dioxide 25 mmol/L (22-29); Chloride 104 mmol/L (98-107); Creatinine Clr Calc Pharmacy 151.1722; Globulin 2.6 g/dL (1.3-4.6); Glomerular Filtration Rate 116.6 mL/min (90-130); Glucose 90 mg/dL (65-115); NT Pro B Type Natriuretic Pept 29 pg/mL (0-125); Osmolality Calculated 286 mOsm/kg (285-295); Potassium 4.1 mmol/L (3.5-5.1); Sodium 139 mmol/L (136-145); Total Bilirubin 0.2 mg/dL (0.15-1.2); Total Protein 7.2 g/dL (6.6-8.7)
[2020-06-13] MEDS: enoxaparin 100 mg/mL Syringe 90 MG SUBCUT (22:00)
[2020-06-13 22:03] VITALS: BP 133/90; PULSE 71; RESP 17; O2SAT 99
[2020-06-13] MEDS: acetaminophen 500 mg Tablet 1000 MG PO (22:17)
[2020-06-13 22:22] LABS: HCG, Serum Qual Negative (Negative)
[2020-06-13] MEDS: iohexol 350 mg/mL 100 mL Btl IV (22:45)
[2020-06-13 23:07] VITALS: BP 118/77; PULSE 74; RESP 20; O2SAT 99
[2020-06-13 23:30] LABS: Troponin 5 2HR Delta 0 ABS# (0-10)
[2020-06-13 23:51] VITALS: BP 112/73; PULSE 70; RESP 19; O2SAT 99
[2020-06-13 23:51] LABS: D Dimer <= 0.27 ug/mIFEU (0-0.59)
[2020-06-14 00:29] VITALS: BP 109/70; PULSE 69; RESP 21; O2SAT 98
[2020-06-14 00:53] VITALS: BP 112/82; PULSE 70; RESP 22; O2SAT 99
--- NOTE | 2020-06-14 23:32 | USCV_ITS ---
Tyron Mary Age: 29 Gender: F : 1990 Exam Date: 06/14/2020 00:15 Ordering Phys: Erna Norris DO Technologist: Derek Sifuentes [place] [facility] [place]: CHEST PAIN ? PE HISTORY: pulmonary embolism. ? PROCEDURES: The venous duplex Doppler examination of both lower extremities was performed in the standard fashion. The following venous structures were evaluated: common femoral vein, profunda vein, proximal portion of the greater saphenous vein, superficial femoral vein, and the popliteal vein. In addition, the posterior tibial and peroneal trunk were evaluated. Bilaterally, the common femoral, superficial femoral, profunda femoral, popliteal, posterior tibial, greater saphenous veins, and the peroneal trunk were identified and interrogated in the standard fashion. These veins were found to be easily compressible with spontaneous blood flow. No evidence of insufficiency or thrombus noted. FINDINGS: Normal 2-D Doppler and augmentation and compressibility throughout the lower extremity venous structures. Additional imaging through the proximal calf veins also reveals no thrombus. Limited evaluation of the greater saphenous vein is patent with no thrombus.. CONCLUSIONS No evidence of DVT in the above-mentioned identifiable veins. Dr Wilian Andrade MD [facility] (Electronically Signed) Final Date: 14 June 2020 09:13 S
== END 2020-06-14 01:09 | disposition home or self-care (01) ==
PROVIDERS: Emergency Medicine; Emergency Provider Emergency Medicine; PCP Family Medicine
DX: R09.1 Pleurisy (principal); Z79.01 Long term (current) use of anticoagulants; F17.210 Nicotine dependence, cigarettes, uncomplicated
CPT/HCPCS: 12345; 71045; 71275; 80053; 83880; 84484; 84703; 85025; 85378; 85610; 93005; 93970; 96360; 96361; 96372; 99283; J1650; J7030; Q9967

== ENCOUNTER 2020-08-03 08:37 | Outpatient (CLI) | payer MEDICAID, SELFPAY ==
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
== END 2020-08-03 08:38 | disposition home or self-care (01) ==
LOC: ONCMED 08:38
PROVIDERS: PCP Family Medicine; Visit Provider Internal Medicine Medical Oncology
DX: I26.99 Other pulmonary embolism without acute cor pulmonale (principal); Z79.01 Long term (current) use of anticoagulants; F17.210 Nicotine dependence, cigarettes, uncomplicated
CPT/HCPCS: 99204

== ENCOUNTER 2020-09-14 14:40 | Outpatient (CLI) | payer BC, MEDICAID, SELFPAY ==
--- NOTE | 2020-09-15 07:00 | ONC FU_ITS ---
Dr. Biswas Patient Follow-Up Note Patient: Mary Ackerman Unit #: [id number]: 1990 Dicatated By: Francisco Biswas M.D.Date of Visit:Sep 14, 2020 Onc Med Follow-up/Prog Note Chief Complaint: Pulmonary embolism. History of Present Illness: This is a 30 year-old woman who had a suspected pulmonary embolism. In January and in February 2020 she had emergency room visits with chest pain and shortness of breath. With the initial visit she her treatment included a Medrol dose pack, which apparently did help her symptoms. She continued, though, to have pleuritic pain and shortness of breath, and she returned to the emergency room with those symptoms on 06/13/2020. CT pulmonary angiogram at that time reported a small filling defect in the left upper lobe segmental pulmonary artery consistent with a pulmonary embolus. No other visualized filling defects were noted and there were no other acute findings noted on that study. Her laboratory studies at that time did show a mildly elevated white blood cell count at 14,900. Her D-dimer was normal at less than 0.27. She was given a prescription for apixaban, but she returned to the emergency room later the same day because she had difficulty getting the prescription filled. She then had a repeat CT pulmonary angiogram which showed no evidence for pulmonary embolus. Nonetheless, with those findings, she did begin anticoagulation with apixaban. Her venous Doppler the following day showed no evidence for deep vein thrombosis in the lower extremities bilaterally. I had seen her initially on 08/03/2020. After reviewing the CT pulmonary angiograms with one of our radiologist, it appear that the initial study was technically inferior. On the second study the pulmonary arteries were better visualized, and with it having being a negative study and with her D-dimer being normal, I felt that it was unlikely that she actually had pulmonary embolism. Nonetheless, as she was having no adverse effects with apixaban, I did recommend that she go ahead and complete 3 months of treatment. She is seen now for a follow-up visit. She still complains that she feels very tired, but she does have normal activity. ECOG score is 0. She has good appetite. She has not had fever. She occasionally has hot flashes and sweating at night. She still has occasional episodes of shortness of breath and chest discomfort on the left side. She reports having some acid reflux with specific foods. She has no other GI or complaints. She has no significant joint or bone pain. She does not complain of headache or dizziness. She has some numbness/tingling in her hands and feet, but it is positional. She has having some anxiety and depression. She had previously been on Wellbutrin, but she had stopped taking it when she lost insurance and could no longer afford it. Medications: Acetaminophen 1 - 2 Capsule (of 325 mg) Oral daily PRN, Eliquis 1 Tablet (of 5 mg) Oral b.i.d. Allergies: No Known Allergies. Vital Signs: Performed on Sep 14, 2020 15:03 Height - 65.00 in Weight - 220 lbs (HIGH) BSA - 2.06 sq.m BMI - 36.61 (HIGH) Temperature - 98.0 F (LOW) Pulse - 69 /min Respiration - 17 /min BP - 119/78 mm(hg) O2 Sat - 97 % Pain - 0 Physical Examination: Constitutional - She looks good generally, Eyes - Sclerae nonicteric. Conjunctivae clear, ENMT - No lesions noted in the oral cavity, Hematologic/Lymphatic - No cervical, clavicular, or axillary adenopathy, Respiratory - Lungs are clear with good air movement bilaterally, Cardiovascular - Heart rhythm is regular. There is no murmur, gallop, or rub noted, Abdomen - Soft. Liver and spleen are not enlarged. There is no abdominal mass or ascites noted and there is no inguinal adenopathy, Extremities - No edema, Neurologic - No focal neurologic deficits noted. Problem List: 1. Suspected pulmonary embolism based on a CT pulmonary angiogram on 06/13/2020. 2. Anxiety/depression. Problems Addressed with this Encounter and Plan: 1. Patient with suspected pulmonary embolism based on a CT pulmonary angiogram on 06/13/2020. However, a repeat pulmonary angiogram later the same day, which was a better quality study, was negative, and her D-dimer was normal. Furthermore, there was nothing in her history to suggest a precipitating cause for thromboembolism, and she had no family history of thromboembolism. Her only risk factor was smoking. As such, I felt that it was unlikely that she actually had a pulmonary embolism. As a precaution, she has completed 3 months of anticoagulation with apixaban. During that time she has continued to complain of fatigue and she continues to have occasional episodes of shortness of breath and left chest discomfort. The cause/clinical significance of those symptoms is uncertain. It is very unlikely, though, that she has had any thromboembolism. She has advised to stop the apixaban now. She will continue her regular follow-up with Dr. Sibley. I will see her again only as needed. 2. She has anxiety/depression. In the past she had been on treatment with Wellbutrin, but she had stopped taking it when she could no longer afford it. As she would like to get back on medication now she will be given a prescription for bupropion extended release 150 mg daily. She is going to schedule follow-up with Dr. Sibley. Signed By: Francisco Biswas M.D. <<Signature on File>>
== END 2020-09-14 14:41 | disposition home or self-care (01) ==
LOC: ONCMED 14:43
PROVIDERS: PCP Family Medicine; Visit Provider Internal Medicine Medical Oncology
DX: R91.8 Other nonspecific abnormal finding of lung field (principal); R06.02 Shortness of breath; R07.89 Other chest pain; F41.8 Other specified anxiety disorders; Z79.01 Long term (current) use of anticoagulants; Z79.899 Other long term (current) drug therapy
CPT/HCPCS: 99214

== ENCOUNTER → 2021-06-12 15:33 | Outpatient (BNVA) | payer BC, MEDICAID, SELFPAY | PROVIDERS: PCP Nurse Practitioner; Visit Provider Nurse Practitioner | DX: F41.8 Other specified anxiety disorders (principal); Z13.6 Encounter for screening for cardiovascular disorders | CPT/HCPCS: 80053; 80061; 85025 ==

== ENCOUNTER → 2022-06-07 14:18 | Outpatient (BNVA) | payer BC, MEDICAID, SELFPAY | PROVIDERS: PCP Nurse Practitioner; Visit Provider Registered Nurse Neonatal Intensive Care | DX: J02.9 Acute pharyngitis, unspecified (principal); R50.9 Fever, unspecified; B34.9 Viral infection, unspecified | CPT/HCPCS: 87071; 87400; 87880 ==

== ENCOUNTER → 2022-12-26 11:44 | Outpatient (BNVA) | payer OTHER, SELFPAY | PROVIDERS: PCP Nurse Practitioner; Visit Provider Nurse Practitioner Family | DX: F41.8 Other specified anxiety disorders (principal); R73.9 Hyperglycemia, unspecified | CPT/HCPCS: 80053; 80061; 83036; 83735; 84443; 85025 ==

== ENCOUNTER → 2023-06-28 10:15 | Outpatient (BNVA) | payer OTHER, SELFPAY | PROVIDERS: PCP Nurse Practitioner Family; Visit Provider Nurse Practitioner Family | DX: E66.9 Obesity, unspecified (principal); F41.8 Other specified anxiety disorders; R73.9 Hyperglycemia, unspecified | CPT/HCPCS: 80053; 80061; 83036; 84443; 85025 ==

== ENCOUNTER → 2023-10-24 09:10 | Outpatient (BNVA) | payer OTHER, SELFPAY | PROVIDERS: PCP Nurse Practitioner Family; Visit Provider Nurse Practitioner Family | DX: F41.8 Other specified anxiety disorders (principal); Z79.899 Other long term (current) drug therapy | CPT/HCPCS: 80053; 82607; 83735; 84443; 85025 ==

== ENCOUNTER → 2024-01-17 10:42 | Outpatient (BNVA) | payer BC, MEDICAID, SELFPAY | PROVIDERS: PCP Nurse Practitioner Family; Visit Provider Nurse Practitioner Family | DX: F41.8 Other specified anxiety disorders (principal); E03.9 Hypothyroidism, unspecified; R73.9 Hyperglycemia, unspecified | CPT/HCPCS: 80053; 80061; 82607; 83036; 84439; 84443; 85025 ==

== ENCOUNTER 2025-05-02 08:30 | Emergency (ER) | payer BC, MEDICAID, SELFPAY ==
[2025-05-02 08:50] VITALS: BP 174/107; PULSE 68; RESP 18; TEMP 36.7; O2SAT 93; BMI 21.6
[2025-05-02 09:01] LABS: Hematocrit 45.2 % (36-47); Hemoglobin 15.90 g/dL (11.27-16.99); Mean Corpuscular HGB Conc 35.2 g/dL (30-55); Mean Corpuscular Hemoglobin 30.7 pg (27-33); Mean Corpuscular Volume 87.3 fl (85-98); Nucleated Red Blood Cells % 0 %; Platelet Count 360 10^3/cmm (157-399); Red Blood Count 5.18 10^6/uL (3.85-5.65); White Blood Count 9.99 10^3/uL (3.29-11.43)
[2025-05-02 09:05] VITALS: BP 188/102; PULSE 62; O2SAT 97
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
[2025-05-02] MEDS: LORazepam 1 MG/0.5 ML injection IVP (09:25)
[2025-05-02] MEDS: metoclopramide 5 mg/mL SDV 2 mL 10 MG IVP (09:25)
[2025-05-02] MEDS: haloperidol inj 5 mg/mL INJ 1 mL 2.5 MG IVP (09:26)
[2025-05-02] MEDS: lidocaine 2% viscous 15 ML, aluminum-mag hydrox-simethicon 30 ML, sucralfate oral liq 1 GM PO (09:27)
[2025-05-02 09:30] VITALS: BP 143/120; PULSE 75; O2SAT 95
[2025-05-02 09:32] LABS: Alanine Aminotransferase 18 U/L (0-33); Albumin Level 4.7 g/dL (3.5-5.2); Alkaline Phosphatase 77 U/L (35-105); Anion Gap 24.2 (5-19); Aspartate Amino Transferase 30 U/L (0-32); Blood Urea Nitrogen 13 mg/dL (6-20); Calcium 10.1 mg/dL (8.5-10.5); Carbon Dioxide 24 mmol/L (22-29); Chloride 93 mmol/L (98-107); Creatinine Clr Calc Pharmacy 88.6867; Globulin 3.8 g/dL (1.3-4.6); Glucose 137 mg/dL (65-115); Lipase 99 U/L (13-60); Osmolality Calculated 288 mOsm/kg (285-295); Potassium 3.2 mmol/L (3.5-5.1); Sodium 138 mmol/L (136-145); Total Protein 8.5 g/dL (6.6-8.7)
[2025-05-02 09:35] LABS: HCG, Serum Qual Negative (Negative)
[2025-05-02] MEDS: potassium chloride oral liq 20 mEq/15 mL UDC 40 MEQ PO (09:50)
[2025-05-02 10:00] VITALS: BP 135/94; PULSE 68; O2SAT 93
[2025-05-02 10:13] LABS: Glucose Urine UA Negative (Normal); Nitrate Urine Negative (Negative); Specific Gravity, Urine 1.022 (1.005-1.030)
[2025-05-02 10:18] LABS: Add Urine Microscopic? YES
[2025-05-02 10:40] VITALS: BP 128/82; PULSE 68; O2SAT 93
== END 2025-05-02 10:52 | disposition home or self-care (01) ==
PROVIDERS: Emergency Medicine; Emergency Provider Physician Assistant; PCP Family Medicine
DX: R11.2 Nausea with vomiting, unspecified (principal); E87.6 Hypokalemia
CPT/HCPCS: 36415; 80053; 81001; 83690; 84703; 85025; 96374; 96375; 99284; J1630; J2060; J2765; J7030; J9999

== ENCOUNTER 2025-05-08 15:30 | Emergency (ER) | payer BC, MEDICAID, SELFPAY ==
[2025-05-08 15:42] VITALS: BP 173/104; PULSE 83; RESP 19; TEMP 36.7; O2SAT 96; BMI 22.4
--- NOTE | 2025-05-08 16:21 | ED_ITS ---
HPI - Abdominal Pain 2 General: Chief Complaint: Abdominal Pain Stated Complaint: abd pain Source: patient Mode of arrival: ambulatory Limitations: no limitations History of Present Illness: Patient is a 34-year-old female presents to ED today for evaluation of continued upper abdominal pain. I saw patient here approximately 6 days ago for identical symptoms. Patient states she was feeling better when she left but she never fully recovered and pain has continued to be present. She has continued to feel nauseous with vomiting. She feels like symptoms are worse in the morning. She did follow-up with her primary care provider who recommended bland liquid diet with advancement as tolerated but she states she has not been able to do this. She denies urinary symptoms but states she is not urinating much due to the decreased oral intake. No fevers. MD elicited complaint: abdominal pain Pertinent past history: none Onset (ago): day(s) Pain Consistency: constant Location: Epigastric, LUQ and RUQ Severity: severe Radiation: back Migration to: no migration Exacerbating factors: nothing Relieving factors: nothing Associated Symptoms: Reports nausea and vomiting; Denies change in bowel habits, chills, diarrhea, dysuria, fever(s), heartburn and syncope Related Data Home Medications ?Medication ?Instructions ?Recorded ?Confirmed acetaminophen 325 mg tablet 325 - 650 mg PO DAILY PRN Pain 06/13/20 05/02/25 (Tylenol) buspirone 15 mg tablet 15 mg PO BID 05/02/25 hydroxyzine HCl 50 mg tablet 50 mg PO Q6H PRN severe a nxiety 05/02/25 05/02/25 venlafaxine 75 mg tablet 75 mg PO DAILY 05/02/2504/13 Previous Rx's ?Medication ?Instructions ?Recorded levothyroxine 25 mcg tablet 25 mcg PO DAILY #90 tabs 0 01/17/24 ondansetron 4 mg disintegrating 4 mg PO Q8H PRN nausea and 05/08/25 tablet vomiting #14 tabs pantoprazole 40 mg tablet,delayed See Rx Instructions .Route 05/08/25 release (Protonix) .COMPLEX #28 tabs sucralfate 1 gram tablet (Carafate) 1 g PO TID 2 weeks #42 tabs 05/08/25 Allergies Allergy/AdvReac Type Severity Reaction Status Date / Time No Known Allergies Allergy Verified 01/17/24 10:03 Review of Systems 2 Const: Denies: fever(s) or chills Eyes: Denies: change in vision or blurry vision Card: Denies: chest pain, palpitations, irregular heart rhythm, lightheadedness, syncope or dyspnea on exertion Resp: Denies: dyspnea, productive cough or pain on inspiration GI: Reports: abdominal pain, nausea and vomiting; Denies: heartburn, diarrhea or change in bowel habits : Denies: flank pain, difficulty voiding, dysuria, urinary frequency, urinary urgency or urinary hesitancy Musc: Denies: neck pain, back pain, extremity pain, extremity swelling or joint pain Skin/Breast: Denies: rash Neuro: Denies: headache(s), numbness in extremities, weakness in extremities, sensory changes or dizziness PFSH ED 2 PFSH: Medical History Obesity (BMI 30-39.9) 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 Anxiety with depression Current smoker Surgical History H/O skin graft Right hand secondary to oil burn while cooking Family History Other Cancer Dementia Diabetes Hypertension Stroke Denies family history of Chronic kidney disease (CKD) Bleeding disorder Social History Smoking and tobacco/nicotine status: current every day tobacco/nicotine user e- cigarettes E-Cigarette Details: vaporizer device Second hand smoke exposure: Yes Alcohol intake: current Alcohol intake frequency: 3 or more drinks per day Substance/Drug Use: never Adopted: No Caregiver/support person: No Lives independently: Yes Household members: significant other and children Housing: House Marital status: Single Number of children: 3 service: No Current occupational status: unemployed and student Pets and animals: Yes Pets & animals: dog(s) Do you think of yourself as: Straight/Heterosexual Current gender identity: Female Female Reproductive History: Para: 1 Physical Exam 2 Const: COMMON NORMALS: average body habitus, patient oriented x3, no limitations, healthy appearing, alert and well nourished GENERAL APPEARANCE: cooperative and in distress (appears uncomfortable) O RIENTATION/CONSCIOUSNESS: Yes awake, Yes oriented to person, Yes oriented to place and Yes oriented to time HENMT: COMMON NORMALS: normocephalic and atraumatic HEAD & SCALP: n ormocephalic and atraumatic Neck/C-Spine: COMMON NORMALS: full ROM, no lymphadenopathy, supple and no meningeal signs Chest: COMMONS NORMALS: normal inspection of the chest Resp: COMMON NORMALS: normal respiratory effort and clear to auscultation bilaterally AUSCULTATION: clear to auscultation bilaterally Cardio: COMMON NORMALS: regular rate and regular rhythm RATE: regular rate RHYTHM: regular rhythm GI: COMMON NORMALS: Normal to inspection, nondistended, normoactive bowel sounds present, Soft to palpation, No hepatosplenomegaly present and no masses INSPECTION: Yes normal to inspection AUSCULTATION: Yes normoactive bowel sounds PALPATION: Yes Soft to palpation, Yes Tenderness to palpation present (GI) (throughout upper abdomen) and Yes No hepatosplenomegaly present : BLADDER/KIDNEY EXAM: Yes CVA tenderness on the left Back/Pelvis: COMMON NORMALS: thoracic and lumbar spine normal to inspection GENERAL BACK: Yes CVA tenderness Extremity: COMMON NORMALS: normal to inspection Neuro: COMMON NORMALS: patient oriented x3 SENSORIUM/ORIENTATION: Yes alert, Yes oriented to person, Yes oriented to place and Yes oriented to time MENINGEAL SIGNS: Yes no meningeal signs Skin: COMMON NORMALS: no rashes or lesions noted GENERAL SKIN EXAM: no rashes or lesions noted Course 2 Reevaluation(s): Reevaluation #1: Patient feeling much better after GI cocktail and nausea meds. ES Vital Signs: Vital signs: Vital Signs Temperature 98.1 F 05/08/25 15:42 Pulse Rate 69 05/08/25 18:51 Respiratory Rate 19 H 05/08/25 15:42 Blood Pressure 126/79 05/08/25 18:51 Pulse Oximetry 95 05/08/25 18:51 Oxygen Delivery Me thod Room Air 05/08/25 18:51 MDM - Abdominal Pain Medical Decision Making Patient did feel quite a deal better after GI cocktail. Pain did later returned. Her vital signs are stable. Blood work still is nonactionable. Lipase that was scantly elevated on her last visit is now normal. CT scan showing no acute abnormalities. Patient will be placed on Carafate/PPI. Recommend follow-up with primary care. If symptoms do not improve she may require referral for endoscopy. Medical Records I reviewed the patient's medical records. Lab Data I reviewed the patient's lab results. 05/08/25 16:20 05/08/25 16:20 Labs/Radiology: Radiology Impressions Abdomen/Pelvis CT 05/08/25 16:26 IMPRESSION: 1. No bowel obstruction or inflammatory process associated with the bowel. 2. No free air or significant free fluid in the abdomen or pelvis. 3. No evidence of appendicitis. Laboratory Results WBC 12.49 10^3/uL (3.29-11.43) H 05/08/25 16:20 RBC 4.92 10^6/uL (3.85-5.65) 05/08/25 16:20 Hgb 15.20 g/dL (11.27-16.99) 05/08/25 16:20 Hct 43.7 % (36-47) 05/08/25 16:20 MCV 88.8 fl (85-98) 05/08/25 16:20 MCH 30.9 pg (27-33) 05/08/25 16:20 MCHC 34.8 g/dL (30-55) 05/08/25 16:20 RDW 12.1 % (12.1-15.1) 05/08/25 16:20 Plt Count 371 10^3/cmm (157-399) 05/08/25 16:20 MPV 9.7 fL (7.4-10.4) 05/08/25 16:20 Neut % (Auto) 84.4 % 05/08/25 16:20 Lymph % (Auto) 11.8 % 05/08/25 16:20 [place] % (Auto) 3.1 % 05/08/25 16:20 Eos % (Auto) 0.1 % 05/08/25 16:20 Baso % (Auto) 0.4 % 05/08/25 16:20 Neut # (Auto) 10.53 10^3/uL (1.8-7.7) H 05/08/25 16:20 Lymph # (Auto) 1.5 10^3/uL (0.8-4.8) 05/08/25 16:20 [place] # (Auto) 0.4 10^3/uL (0.2-0.9) 05/08/25 16:20 Eos # (Auto) 0.0 10^3/uL (0.0-0.8) 05/08/25 16:20 Baso # (Auto) 0.1 10^3/uL (0.0-0.1) 05/08/25 16:20 Nucleated RBC % (auto) 0 % 05/08/25 16:20 Nucleated RBCs # 0.0 /100WBC 05/08/25 16:20 Sodium 134 mmol/L (136-145) L 05/08/25 16:20 Potassium 4.5 mmol/L (3.5-5.1) 05/08/25 16:20 Chloride 95 mmol/L (98-107) L 05/08/25 16:20 Carbon Dioxide 22 mmol/L (22-29) 05/08/25 16:20 Anion Gap 21.5 (5-19) H 05/08/25 16:20 BUN 13 mg/dL (6-20) 05/08/25 16:20 Creatinine 0.7 mg/dL (0.5-0.9) 05/08/25 16:20 GFR Calculation 94.7 mL/min (90-130) 05/08/25 16:20 Glucose 92 mg/dL (65-115) 05/08/25 16:20 Calculated Osmolality 278 mOsm/kg (285-295) L 05/08/25 16:20 Calcium 9.3 mg/dL (8.5-10.5) 05/08/25 16:20 Total Bilirubin 0.7 mg/dL (0.15-1.2) 05/08/25 16:20 AST 16 U/L (0-32) 05/08/25 16:20 ALT 13 U/L (0-33) 05/08/25 16:20 Alkaline Phosphatase 66 U/L (35-105) 05/08/25 16:20 Total Protein 8.1 g/dL (6.6-8.7) 05/08/25 16:20 Albumin 4.6 g/dL (3.5-5.2) 05/08/25 16:20 Globulin 3.5 g/dL (1.3-4.6) 05/08/25 16:20 Lipase 19 U/L (13-60) 05/08/25 16:20 HCG, Qual Negative (Negative) 05/08/25 16:20 All radiology interpretation(s) finalized by discharge Discharge Plan Discharge Patient Disposition: Home Clinical Impression: Epigastric abdominal pain Condition: Stable Prescriptions: New sucralfate [Carafate] 1 gram tablet 1 g PO TID 14 Days Qty: 42 0RF pantoprazole [Protonix] 40 mg tablet,delayed release (DR/EC) See Rx Instructions .ROUTE .COMPLEX Qty: 28 0RF Rx Instructions: 40 mg orally; Take 1 tab BID x 1 week then 1 tab daily ondansetron 4 mg tablet,disintegrating 4 mg PO Q8H PRN (Reason: nausea and vomiting) Qty: 14 0RF Discontinued lorazepam [Ativan] 1 mg tablet 1 mg PO BID PRN (Reason: nausea and vomiting) Qty: 6 0RF olanzapine 2.5 mg tablet 2.5 mg PO DAILY PRN (Reason: nausea and vomiting) Qty: 3 0RF No Action levothyroxine 25 mcg tablet 25 mcg PO DAILY Qty: 90 4RF acetaminophen [Tylenol] 325 mg Tablet 325 - 650 mg PO DAILY PRN (Reason: Pain) venlafaxine 75 mg tablet 75 mg PO DAILY hydroxyzine HCl 50 mg tablet 50 mg PO Q6H PRN (Reason: severe anxiety) buspirone 15 mg tablet 15 mg PO BID Discharge Orders: Discharge ED (Routine); Ordered 05/08/25 Ordered By: Mary David Referrals: Petar More MD [Primary Care Provider, Family Practice] Patient Instructions: Abdominal Pain (ED), Patient Portal & Manjit Instructions Activity Restrictions/Additional Instructions: As we discussed, please follow-up with your primary care provider for further evaluation of symptoms. You may return to the emergency department at anytime for any further concerns you may have. We will try you on medications to help with potential stomach pain. Continue to do a bland liquid diet and advance as tolerated. 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
[2025-05-08 16:26] LABS: Hematocrit 43.7 % (36-47); Hemoglobin 15.20 g/dL (11.27-16.99); Mean Corpuscular HGB Conc 34.8 g/dL (30-55); Mean Corpuscular Hemoglobin 30.9 pg (27-33); Mean Corpuscular Volume 88.8 fl (85-98); Nucleated Red Blood Cells % 0 %; Platelet Count 371 10^3/cmm (157-399); Red Blood Count 4.92 10^6/uL (3.85-5.65); White Blood Count 12.49 10^3/uL (3.29-11.43)
--- NOTE | 2025-05-08 16:26 | CTR_ITS ---
PROCEDURE INFORMATION: Exam: CT Abdomen And Pelvis With Contrast Exam date and time: 05/08/2025 4:52 PM Age: 34 years old Clinical indication: Abdominal pain; Additional info: Upper abdominal pain, n/v TECHNIQUE: Imaging protocol: Computed tomography of the abdomen and pelvis with contrast. Radiation optimization: All CT scans at this facility use at least one of these dose optimization techniques: automated exposure control; mA and/or kV adjustment per patient size (includes targeted exams where dose is matched to clinical indication); or iterative reconstruction. Contrast material: OMNI 350; Contrast volume: 100 ml; Contrast route: INTRAVENOUS (IV); COMPARISON: CT angio chest PE protcl [id number] 06/13/2020 10:44 PM RADIATION DOSE METRICS: Total DLP (mGy-cm): 337.19 FINDINGS: Liver: Normal. No mass. Gallbladder and biliary ducts: Normal. No calcified stones. No ductal dilation. Pancreas: Normal. No ductal dilation. Spleen: Normal. No splenomegaly. Adrenal glands: Normal. No mass. Kidneys and ureters: Normal. No hydronephrosis. Stomach and bowel: Unremarkable. No obstruction. No mucosal thickening. Appendix: No evidence of appendicitis. Intraperitoneal space: Unremarkable. No free air. No significant fluid collection. Vasculature: Unremarkable. No abdominal aortic aneurysm. Lymph nodes: Unremarkable. No enlarged lymph nodes. Urinary bladder: Unremarkable as visualized. Reproductive: Unremarkable as visualized. Bones/joints: Unremarkable. No acute fracture. Soft tissues: Unremarkable. CT/CT abdomen pelvis w con* [id number] IMPRESSION: 1. No bowel obstruction or inflammatory process associated with the bowel. 2. No free air or significant free fluid in the abdomen or pelvis. 3. No evidence of appendicitis.
[2025-05-08 16:44] LABS: HCG, Serum Qual Negative (Negative)
[2025-05-08 16:52] LABS: Alanine Aminotransferase 13 U/L (0-33); Albumin Level 4.6 g/dL (3.5-5.2); Alkaline Phosphatase 66 U/L (35-105); Anion Gap 21.5 (5-19); Aspartate Amino Transferase 16 U/L (0-32); Blood Urea Nitrogen 13 mg/dL (6-20); Calcium 9.3 mg/dL (8.5-10.5); Carbon Dioxide 22 mmol/L (22-29); Chloride 95 mmol/L (98-107); Creatinine Clr Calc Pharmacy 102.9474; Globulin 3.5 g/dL (1.3-4.6); Glucose 92 mg/dL (65-115); Lipase 19 U/L (13-60); Osmolality Calculated 278 mOsm/kg (285-295); Potassium 4.5 mmol/L (3.5-5.1); Sodium 134 mmol/L (136-145); Total Protein 8.1 g/dL (6.6-8.7)
[2025-05-08] MEDS: iohexol 350 mg/mL 500 mL Btl (per mL) IV (16:54)
[2025-05-08] MEDS: ondansetron 2 mg/ML SDV 2 mL 4 MG IVP (16:55)
[2025-05-08] MEDS: lidocaine 2% viscous 15 ML, aluminum-mag hydrox-simethicon 30 ML, sucralfate oral liq 1 GM PO ×2 (16:55→19:37)
[2025-05-08 18:51] VITALS: BP 126/79; PULSE 69; O2SAT 95
[2025-05-08] MEDS: morphine 4 mg/mL SDV 1 mL IVP (19:37)
== END 2025-05-08 20:01 | disposition home or self-care (01) ==
PROVIDERS: Emergency Provider Physician Assistant; PCP Family Medicine
DX: R10.13 Epigastric pain (principal); F17.290 Nicotine dependence, other tobacco product, uncomplicated
CPT/HCPCS: 36415; 74177; 80053; 83690; 84703; 85025; 96374; 96375; 99285; J2270; J2405; J7030; J9999

== ENCOUNTER 2025-06-21 08:12 | Day surgery (SDC) | payer BC, MEDICAID, SELFPAY ==
[2025-06-21 08:27] VITALS: BP 107/66; PULSE 63; RESP 16; TEMP 36.8; O2SAT 99; BMI 23.3
[2025-06-21 08:32] LABS: OR HCG Qualitative Urine Negative (Negative)
--- NOTE | 2025-06-21 08:52 | ANES.PREANE2 ---
Pre-Anesthetic Assessment Height/Weight: Height 1.65 m Weight 63.503 kg Temp Pulse Resp BP Pulse Ox O2 Del Method 98.3 F 63 16 107/66 99 Room Air 06/21/25 08:27 06/21/25 08:27 06/21/25 08:27 06/21/25 08:27 06/21/25 08:27 06/21/25 08:27 Operation Date: 06/21/25 09:45 Proposed Procedures p EGD EGD with Biopsy [id number](Not Applicable) - Jaret Baptiste MD Was Beta Kiana taken within 24 hours: N/A Was Clonidine taken within 24 hours: N/A Last intake: Intake Last Liquid Date 06/20/25 Last Liquid Time 21:00 Last Solid Date 06/20/25 Last Solid Time 21:00 Social Tobacco smokes mariaguru daily Exam alert, oriented x 3, clear to auscultation bilaterally and regular rate & rhythm Airway Submandibular: within normal limits Cervical ROM: within normal limits Mallampati: Class I Dentition: partials Pulmonary None reported CV/HEM None reported None reported Hepatic None reported GI abd pain Metabolic [place] [facility] [place] None reported Anesthetic Plan ASA status: 2 Anesthesia: Anesthesia Evaluation and MAC Medications/Allergies Home Medications ?Medication ?Instructions ?Recorded ?Confirmed ?Last Taken ?Type levothyroxine 25 mcg tablet 25 mcg PO DAILY #90 tabs 01/17/24 06/16/25 06/21/25 06:00 Rx buspirone 15 mg tablet 15 mg PO BID 05/02/25 06/16/25 06/16/25 History hydroxyzine HCl 50 mg tablet 50 mg PO Q6H PRN severe anxiety 05/02/25 06/16/25 06/21/25 06:00 History venlafaxine 75 mg tablet 75 mg PO DAILY 05/02/25 06/16/25 06/21/25 06:00 History ondansetron 4 mg disintegrating 4 mg PO Q8H PRN nausea and 05/08/25 06/16/25 1 Month Ago Rx tablet vomiting #14 tabs ~05/16/25 pantoprazole 40 mg tablet,delayed See Rx Instructions .Route 05/08/25 06/16/25 06/16/25 Rx release (Protonix) .COMPLEX #28 tabs simethicone 80 mg chewable tablet 80 mg PO DAILY 06/14/25 06/16/25 Unknown History Allergies Allergy/AdvReac Type Severity Reaction Status Date / Time No Known Allergies Allergy Verified 06/16/25 10:50 Current Medications Generic Name Dose Route Start Last Admin Trade Name Italoq PRN Reason Stop Dose Admin Sodium Chloride 1,000 mls @ 15 mls/hr 06/21/25 08:20 06/21/25 08:34 Sodium Chloride 0.9% IV 06/22/25 08:19 15 mls/hr .Q24H PRN Administration COLONOSCOPY FLUIDS PFSH Anesthesia Medical History Obesity (BMI 30-39.9) 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 Anxiety with depression Current smoker Surgical History H/O skin graft Right hand secondary to oil burn while cooking Family History Other Cancer Dementia Diabetes Hypertension Stroke Denies family history of Chronic kidney disease (CKD) Bleeding disorder Social History Smoking and tobacco/nicotine status: current every day tobacco/nicotine user e-cigarettes E-Cigarette Details: vaporizer device Second hand smoke exposure: Yes Alcohol intake: current Alcohol intake frequency: 3 or more drinks per day Substance/Drug Use: never Adopted: No Caregiver/support person: No Lives independently: Yes Household members: significant other and children Housing: House Marital status: Single Number of children: 3 service: No Current occupational status: unemployed and student Pets and animals: Yes Pets & animals: dog(s) Do you think of yourself as: Straight/Heterosexual Current gender identity: Female Female Reproductive History Date of last menstrual period: 06/07/25 Para: 1
--- NOTE | 2025-06-21 09:11 | W.PM.OPSUD ---
Surgery/Procedure H&P Update DATE OF PROCEDURE: June 21, 2025 DATE H&P PERFORMED: 06/14/25 H&P UPDATE INFORMATION: I have reviewed H&P completed within last 30 days, I have examined patient prior to procedure, No changes to prior documentation and Risks and benefits of the procedure reviewed PLANNED PROCEDURE: Operation Date: 06/21/25 09:45 Proposed Procedures p EGD EGD with Biopsy [id number] R12(Not Applicable) - Jaret Baptiste MD
[2025-06-21 09:20] VITALS: BP 100/61; PULSE 55; RESP 14; TEMP 36.6; O2SAT 100
--- NOTE | 2025-06-21 10:00 | ANE.PACU2 ---
Inpatient post-anesthesia follow up: Airway intact: Yes Vital signs: Temperature 97.8 F Pulse Rate 53 Respiratory Rate 16 Blood Pressure 105/65 Pulse Oximetry 100 Oxygen Delivery Me thod Room Air Oxygen Flow Rate Fraction of Inspir ed Oxygen Hydration adequate: Yes Nausea and vomiting: No Pain level: 1 Mental status: Baseline
[2025-06-21 10:02] VITALS: BP 105/65; PULSE 53; RESP 16; O2SAT 100
== END 2025-06-21 10:04 | disposition home or self-care (01) ==
PROVIDERS: Anesthesiology; PCP Family Medicine; Visit Provider Student in an Organized Health Care Education/Training Program
PROC: 0DJ08ZZ Inspection of Upper Intestinal Tract, Via Natural or Artificial Opening Endoscopic (ICD-10-PCS; principal; 2025-06-21 09:45)
DX: R12 Heartburn (principal); K29.70 Gastritis, unspecified, without bleeding; E66.9 Obesity, unspecified; Z68.23 Body mass index [BMI] 23.0-23.9, adult; F41.8 Other specified anxiety disorders; F17.290 Nicotine dependence, other tobacco product, uncomplicated; K21.9 Gastro-esophageal reflux disease without esophagitis
CPT/HCPCS: 43239; 81025; 88305; J2704; J7030